=== PATIENT | female | born 1985 | race Caucasian/White ===

== ENCOUNTER 2016-08-14 11:45 | Inpatient (IN) | payer OTHER ==
[~2016-08-14] VITALS: Ht 162.6 cm; Wt 71.9 kg
[~2016-08-14 11:45] MED LIST: BENZTROPINE MESY1 M1 PO; CHLORPROMAZINE25 M2 PO; DIAZEPAM2 M1 PO; HYDROCHLOROTH12.5 M3 PO; LEVOTHYROXINE200 MC1 PO; METFORMIN HCL500 M4 PO; PROAIR HFA8.5 GM INH; SYMBICORT 16010.2 GM INH
--- NOTE | 2016-08-14 11:52 | ED PSYCHIATRIC COMPLAINT ---
History of Present Illness General Chief Complaint: Psychiatric Related Complaint Stated Complaint: SI Source: patient Exam Limitations: no limitations Vital Signs & Intake/Output Vital Signs & Intake/Output Vital Signs Date Time Temp Pulse Resp B/P B/P Pulse O2 O2 Flow FiO2 Mean Ox Delivery Rate 08/14 1900 98.3 78 18 131/87 97 Room Air 08/14 1728 97.3 84 18 126/72 97 Room Air 08/14 1410 97.7 89 18 119/77 99 Room Air 08/14 1257 Room Air 08/14 1206 96.9 82 14 119/80 96 Room Air Allergies Coded Allergies: NO KNOWN ALLERGIES (09/29/15) Reconcile Medications Albuterol Sulfate (Proair Hfa) 8.5 GM HFA.AER.AD 2 PUF INH PRN ASTHMA ( Reported) Benztropine Mesylate 1 MG TABLET 1 TAB PO TID MENTAL HEALTH (Reported) Budesonide/Formoterol Fumarate (Symbicort 160-4.5 Mcg Inhaler) 10.2 GM HFA.AER.AD 2 PUF INH BID ASTHMA (Reported) Chlorpromazine HCl 25 MG TABLET 1 TAB PO 4 TIMES/DAY MENTAL HEALTH (Reported) Diazepam 2 MG TABLET 1 TAB PO BID ANXIETY (Reported) Hydrochlorothiazide 12.5 MG CAPSULE 1 CAP PO DAILY DIURETIC (Reported) Levothyroxine Sodium 200 MCG TABLET 1 TAB PO DAILY THYROID (Reported) Metformin HCl (Metformin HCl ER) 500 MG TAB.ER.24H 1 TAB PO BID DIABETES ( Reported) Triage Nurses Notes Reviewed? yes HPI: This is a 31-year-old female with history of bipolar disorder, hypothyroidism presents to the ER via EMS from her friend's house for feeling suicidal. She states that her boyfriend of 10 years broke up with her 2 weeks ago. The reason this occurred is because she spent the remainder of the money of her son's birthday gift on cocaine. She's never used cocaine. She's been using cocaine in the last 2 weeks last used days ago. Denies any recent IV drug use but has a history in the past of IV drug use. She states she is a plan to cut her wrists. She is feeling very sad. She been noncompliant with all of her medications for the past 2 weeks which include Thorazine and Synthroid. She denies hearing any voices. Denies feeling homicidal towards anyone else. 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 History of MRSA: No History of VRE: No History of CDIFF: No Pneumonia Vaccine: 10/01/15 Influenza Vaccine: 12/21/09 Surgical History Surgical History: non-contributory Psychosocial History Who do you live with Significant Other Services at Home None What is your primary language German Progress Differential Diagnosis: BIPOLAR DISORDER, DEPRESSION, ANXIEYT, SUICIDAL IDEATION , COCAINE ABUSE Plan of Care: Orders Procedure Date/time Status Regular Diet 08/15 B Active EKG 08/15 1200 Active THYROID STIMULATING HORMONE 08/15 0600 Active THYROXINE 08/15 0600 Active LIPID PANEL 08/15 0600 Active GLYCOSYLATED HGB 08/15 0600 Active FREE T4 08/15 0600 Active Regular Diet 08/14 D Complete Patient Data - inpatient psych 08/14 1758 Active Admit to inpatient psych 08/14 1758 Active Pathway - chart 08/14 1758 Active Add-on Test (ER Only) 08/14 1423 Active Intake & Output 08/14 1255 Active ETHANOL 08/14 1240 Complete Continuous Observation Monitor 08/14 1152 Active URINE DRUGS OF ABUSE 08/14 1152 Complete URINE 08/14 1152 Complete COMPREHENSIVE METABOLIC PANEL 08/14 1152 Complete CBC WITHOUT DIFFERENTIAL 08/14 1152 Complete ED CRISIS PSYCH CONSULT 08/14 1152 Active Vital Signs 08/14 UNK Active CIWA 08/14 UNK Active Activity/Ambulation 08/14 UNK Active Current Medications Sig/Yolanda Start time Last Medication Dose Stop Time Status Admin Lorazepam 2 MG Q2P PRN 08/14 1800 AC (Ativan) Lorazepam 1 MG Q2P PRN 08/14 1800 AC (Ativan) Laboratory Tests 08/14/16 1242: Urine Opiates Screen > 4000.00 H, Methadone Screen < 40, Barbiturate Screen < 60, Ur Phencyclidine Scrn < 6.00, Amphetamines Screen < 100, U Benzodiazepines Scrn < 85, Urine Cocaine Screen < 50, Urine Cannabis Screen < 5.00, Urine Test NEGATIVE 08/14/16 1240: Anion Gap 15, Estimated GFR > 60, BUN/Creatinine Ratio 13.8, Glucose 199 H, Calcium 10.1, Total Bilirubin 1.4 H, AST 42 H, ALT 80 H, Alkaline Phosphatase 70, Total Protein 8.2, Albumin 5.1 H, Globulin 3.1, Albumin/Globulin Ratio 1.6, CBC w Diff NO MAN DIFF REQ, RBC 5.78 H, MCV 82.4, MCH 27.7, RDW 12.8, MPV 9.0, Gran % 75.7 H, Lymphocytes % 19.8 L, Monocytes % 4.0, Eosinophils % 0.2, Basophils % 0.3, Absolute Granulocytes 5.6, Absolute Lymphocytes 1.5, Absolute Monocytes 0.3, Absolute Eosinophils 0, Absolute Basophils 0, PUBS MCHC 33.7, Serum Alcohol < 10.0 Departure Departure Time of Disposition: 1913 Disposition: STILL A PATIENT Condition: Stable Clinical Impression Primary Impression: Bipolar disorder, unspecified Secondary Impressions: Opiate abuse, continuous, Suicidal ideation Referrals: JEREMIAS RICHARDSON APRN (PCP/Family) Departure Forms: Customer Survey General Discharge Information Psych Admission Note Psychiatric Admission: I have seen and evaluated KYRA ARELLANO. I have also reviewed all the pertinent lab results and diagnostic results. KYRA ARELLANO will be admitted to our inpatient Psychiatric unit for treatment and care.
--- NOTE | 2016-08-14 11:58 | ED PSY CRISIS COLLATERAL NOTE ---
Collateral Note Collateral Note Family/Inform/Rosalie Contacts: Lety of [facility] called to inform that they sent pt in from her emergency [employer] MECHANIC visit today at [facility]. Pt has been off her meds for several weeks and increasingly depressed. She relapsed on cocaine. She has a hx of suicide attempts and cutting her wrists. Her last inpt pt psych tx was about 1 year ago. Pt recently broke up with her boyfriend and is currently having suicidal thoughts and feels unsafe. [facility] faxed over some records for review.
--- NOTE | 2016-08-14 12:04 | NUR ---
PT DALE FROM CARE IN [place] FOR STATEMENTS OF SI. PER PATIENT, SHE STOPPED TAKING HER MEDICATIONS FOLLOWING A BREAK-UP WITH LONG-TIME BOYFRIEND TWO WEEKS AGO. SINCE THAT TIME, SHE HAS BEEN MOVING FROM PLACE TO PLACE WITH NO PERMANENT RESIDENCE. ADMITS TO USING COCAINE YESTERDAY AND PREVIOUSLY. DENIES OTHER ILLICIT DRUG USE. PT TEARFUL AT ADMIT, STATING SHE HAS NO CONCRETE PLAN FOR SUICIDE, BUT HAS THE MEANS. PT WANDED AND CHANGED INTO BLUE SCRUBS, BELONGINGS DOCUMENTED, PT IN VIEW OF OBSERVATION STAFF
--- NOTE | 2016-08-14 12:19 | NUR ---
Patient has (2) two belongings bags locked in closet, (1) one valuables bag given to Pod 2 RN and (1) one valuables bag containing pepper spray taken by Security and locked in their department.
[2016-08-14 12:57] LABS: ABSOLUTE BASOPHIL COUNT 0 /CUMM (0.0-0.2); ABSOLUTE EOSINOPHIL COUNT 0 /CUMM (0.0-0.7); ABSOLUTE GRANULOCYTE CT 5.6 /CUMM (1.4-6.5); ABSOLUTE LYMPH COUNT 1.5 /CUMM (1.2-3.4); ABSOLUTE MONOCYTE COUNT 0.3 /CUMM (0.10-0.60); BASOPHIL % 0.3 % (0.0-2.0); EOSINOPHIL % 0.2 % (0-5); GRANULOCYTE % 75.7 % (42.2-75.2); HEMATOCRIT 47.6 % (37-47); MEAN CORPUSCULAR HGB 27.7 PG (27.0-31.0); MEAN CORPUSCULAR HGB CONC 33.7 G/DL (33.0-37.0); MEAN CORPUSCULAR VOLUME 82.4 FL (81.0-99.0); PLATELET COUNT 188 /CUMM (130-400); RBC DISTRIBUTION WIDTH 12.8 % (11.5-14.5); RED BLOOD CELL CT 5.78 /CUMM (4.20-5.40); WHITE BLOOD CELL COUNT 7.5 /CUMM (4.8-10.8)
--- NOTE | 2016-08-14 14:54 | NUR ---
PT WITH CRISIS
--- NOTE | 2016-08-14 17:50 | NUR ---
Crisis evaluation completed. pt will admitted to [facility].
--- NOTE | 2016-08-14 18:04 | NUR ---
REPORT TO NNP IN [facility]
[2016-08-14 20:00] VITALS: BP 119/74
--- NOTE | 2016-08-14 20:02 | ED PSYCH CRISIS CONSULTATION ---
Crisis Consult Basic Assessment Date of Consult: 08/14/16 Responsible Person/Accompanied By: Self Insurance Authorization: Insurance #1: Insurance name: [employer] Phone number: Policy number: [id number] Group number: Authorization number: ED Provider: Patient's ED Provider: JASON HENAO MD Primary Care Physician: Patient's PCP: JEREMIAS RICHARDSON APRN PCP's Current Psychiatrist: Guevara Mitchell MD Chief Complaint: Psychiatric Related Complaint Patient's Quote: "I'm feeling down" Present Illness: Pt is a 31 year old single female BIBA from [facility]. Pt was seen at [facility] by Cheryle Hart APRN whom the pt told she was having suicidal thoughts. Pt reports she has been binging on Cocaine for the past two weeks and now she feels like "hurting myself in anyway". Pt states she hasn't had much sleep or food within the past two weeks. Current stressors, pt recently was thrown out of her boyfriend's home (in a relationship 10 years). Pt states she took money from her boyfriend and bought "things for my son's birthday" and also use the money from her boyfriend for drugs. The boyfriend found out and threw her out of his home. Pt is unemployed and now homeless. Pt states her mother too is homeless and lives out of her car. Pt has a 13 year old son Noel, who lives with his father in [place]. Pt was alert and oriented. Pt states she was unaware that she was snorting Heroin, pt believed she was snorting Cocaine instead. However her Utox is positive for Opioid, not Cociane. Pt's mood was depressed, her attitude was calm and cooperative. Pt appeared motivated for help as she stated she went to her outpatient treatment today, even though her appointment was not until 08/25/16. Pt denies having homicidal thoughts and no reports of hallucinations. Pt has a history of a mental health diagnosis of Bipolar Disorder since "I was teenager". Pt has had multiple inpatient admissions. Pt was admitted to [facility] in 2009, 2010 and 2015. Pt was also admitted to [facility] ([facility]). In September, pt was discharged from [facility] with a diagnosis of Bipolar Disorder I, depressed episode. Also, pt reports a history polysubstance use that began at age 16. Pt states she has participated and completed IOP treatment at both [facility] and [facility] IOP. Pt's Utox positive for Opioids. Pt states she stopped taking her psychotropic medication for approximately 2 weeks since the increase in her cocaine & opioid use. Patient's Address: [address] [place] [address] Other Phone Number: Who Do You Live With? Other (see notes) (Homeless) Family/Informants Interviewed: Please see collateral notes. Allergies - Coded Allergies: NO KNOWN ALLERGIES (09/29/15) Current Medications - Scheduled Medications Benztropine Mesylate 1 MG TABLET 1 TAB PO TID MENTAL HEALTH #90 (Reported) Entered as Reported by RENETTA LANDAVERDE on 09/29/151928 Budesonide/Formoterol Fumarate (Symbicort 160-4.5 Mcg Inhaler) 10.2 GM HFA.AER.AD 2 PUF INH BID ASTHMA #10 (Reported) Entered as Reported by RENETTA LANDAVERDE on 09/29/151929 Chlorpromazine HCl 25 MG TABLET 1 TAB PO 4 TIMES/DAY MENTAL HEALTH #120 ( Reported) Entered as Reported by RENETTA LANDAVERDE on 09/29/151927 Diazepam 2 MG TABLET 1 TAB PO BID ANXIETY #60 (Reported) Entered as Reported by RENETTA LANDAVERDE on 09/29/151928 Hydrochlorothiazide 12.5 MG CAPSULE 1 CAP PO DAILY DIURETIC #30 (Reported) Entered as Reported by RENETTA LANDAVERDE on 09/29/151927 Levothyroxine Sodium 200 MCG TABLET 1 TAB PO DAILY THYROID #30 (Reported) Entered as Reported by RENETTA LANDAVERDE on 09/29/151927 Metformin HCl (Metformin HCl ER) 500 MG TAB.ER.24H 1 TAB PO BID DIABETES #30 (Reported) Entered as Reported by RENETTA LANDAVERDE on 09/29/151928 Scheduled PRN Medications Albuterol Sulfate (Proair Hfa) 8.5 GM HFA.AER.AD 2 PUF INH PRN ASTHMA #9 ( Reported) Entered as Reported by RENETTA LANDAVERDE on 09/29/151928 Laboratory Results: Laboratory Tests 08/14/16 1242: Urine Opiates Screen > 4000.00 H, Methadone Screen < 40, Barbiturate Screen < 60, Ur Phencyclidine Scrn < 6.00, Amphetamines Screen < 100, U Benzodiazepines Scrn < 85, Urine Cocaine Screen < 50, Urine Cannabis Screen < 5.00, Urine Test NEGATIVE 08/14/16 1240: Anion Gap 15, Estimated GFR > 60, BUN/Creatinine Ratio 13.8, Glucose 199 H, Calcium 10.1, Total Bilirubin 1.4 H, AST 42 H, ALT 80 H, Alkaline Phosphatase 70, Total Protein 8.2, Albumin 5.1 H, Globulin 3.1, Albumin/Globulin Ratio 1.6, CBC w Diff NO MAN DIFF REQ, RBC 5.78 H, MCV 82.4, MCH 27.7, RDW 12.8, MPV 9.0, Gran % 75.7 H, Lymphocytes % 19.8 L, Monocytes % 4.0, Eosinophils % 0.2, Basophils % 0.3, Absolute Granulocytes 5.6, Absolute Lymphocytes 1.5, Absolute Monocytes 0.3, Absolute Eosinophils 0, Absolute Basophils 0, PUBS MCHC 33.7, Serum Alcohol < 10.0 Past History Past Medical History Neurological: NONE EENT: NONE Cardiovascular: EDEMA Respiratory: NONE Gastrointestinal: NONE Hepatic: cholecystitis, ENLARGED LIVER Renal: NONE Musculoskeletal: NONE Psychiatric: depression, substance abuse Endocrine: hypothyroidism Blood Disorders: NONE Cancer(s): NONE 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 Past Surgical History Surgical History: non-contributory Psychosocial History Strengths/Capabilities: Pt participated in treatment at [facility], Pt is motivated for help Physical Limitations (Interventions): None known Psychiatric Treatment History Psych Treatment Psychiatric Treatment Yes Inpatient Treatment Yes Outpatient Treatment Yes Location of Treatment [facility] and [facility] Reason for Treatment Bipolar Disorder Depression Dates of Treatment 2009, 2010, 2015 Diagnosis by History: Bipolar D/O, Cocaine use disorder, opioid use disorder Substance Use/Abuse History Drug Use/Abuse Substances Used/Abused Yes Substance Used/Abused Heroin First Use Age 16 Last Used 08/14/16 How much used/taken unknown How often Daily For how long Two Weeks Route of use snort Substance Abuse Treatment Substance Abuse Treatment Past Substance Abuse TX Yes Inpatient Treatment No Outpatient Treatment Yes Location of Treatment [facility], [facility] IOP Reason for Treatment Polysubstance use Cocaine, Heroin Ecstasy Dates of Treatment 2010, 2013 Response to Treatment Relapse, Current Mental Status Mental Status Orientation: Person, Place, Situation Affect: Anxious, Depressed, Lonely, Sad Speech: Normal Neuro-vegetative: Appetite Decreased, Energy Decreased, Helpless, Loss of Interest, Sleep Disturbance Appearance Appearance- Dress/Hygiene: Disheveled, unkempt Behaviors Thought Process: Disorganized Thought Content: hopeless/helpless Memory: WNL Insight: Poor SI/HI Risk Assessment Past Suicidal Ideation/Attempts Yes Current Suicidal Ideation/Att Yes Past Homicidal Ideation/Att: No Current Homicidal Ideation/Attempts No Degree of Intent: Plan, Self Destructive/No , States Intent Danger To: Self Gravely Disabled: Lack of Insight, Poor Impulse Control, Poor Judgment Risk Factors: high anxiety/distress, history of suicide atmpts, SA/MH hospitalized, substance abuse, poor impulse control, limited support Lethality Ratin PTSD Checklist PTSD Done? pt unable to participate ED Management Sitter: Yes Restraints: No DSM5/PS Stressors/Medical Prob Diagnosis' (DSM 5, Stressors, Medical): F31.9 Bipolar Disorder Unspecified, F11.20 Opioid Use Disorder Severe, F14.20 Cocaine Use Disorder Severe Medical Condition, hypothyroidism, hypertension Z59.1 inadequate housing, Z55.9 Educational problems, Z56.9 other problems related to employment Current GAF: 20 Departure Disposition Psych Medical Clearance Date: 08/14/16 Medically Cleared at: 0400 Time Started: 0510 Time Ended: 544 Psychiatrist Consulted: Guevara Mitchell MD Date Disposition Established: 08/14/16 Time Disposition Established: 544 Plan for Disposition - Modality: Inpatient Psychiatry Facility: [facility] Follow-up Appt Date: 08/14/16 Follow-Up Appt Time: 0600 Contact: [facility] Telephone: [phone] Rationale for Disposition: Pt presented to the ED with positive suicidal ideation and plan to overdose and harm herself in anyway. Pt utox was positive for opioid and she reports she has been snorting substances not eating or sleeping two weeks. Pt also discontinued her psychotropic medications. Pt meets criteria for inpatient admission because she is at risk and a danger to herself due to ongoing substance abuse. Type of IP Admission: Voluntary Referrals JEREMIAS RICHARDSON APRN (PCP/Family)
[2016-08-14 20:05] VITALS: BP 119/74
--- NOTE | 2016-08-14 21:16 | IP CRISIS DIAG ASSESS PSYCH ---
Diagnostic Assessment Basic Assessment Insurance Authorization: Insurance #1: Insurance name: [facility] Phone number: Policy number: [id number] Group number: Authorization number: [id number] Client Authorization # [id number] Primary Care Physician: Patient's PCP: JEREMIAS RICHARDSON APRN PCP's Patient's Quote: "I'm feeling down" Present Illness: Pt is a 31 year old single female BIBA from [facility]. Pt was seen at [facility] by Cheryle Hart APRN whom the pt told she was having suicidal thoughts. Pt reports she has been binging on Cocaine for the past two weeks and now she feels like "hurting myself in anyway". Pt states she hasn't had much sleep or food within the past two weeks. Current stressors, pt recently was thrown out of her boyfriend's home (in a relationship 10 years). Pt states she took money from her boyfriend and bought "things for my son's birthday" and also use the money from her boyfriend for drugs. The boyfriend found out and threw her out of his home. Pt is unemployed and now homeless. Pt states her mother too is homeless and lives out of her car. Pt has a 13 year old son Noel, who lives with his father in [place]. Pt was alert and oriented. Pt states she was unaware that she was snorting Heroin, pt believed she was snorting Cocaine instead. However her Utox is positive for Opioid, not Cociane. Pt's mood was depressed, her attitude was calm and cooperative. Pt appeared motivated for help as she stated she went to her outpatient treatment today, even though her appointment was not until 08/25/16. Pt denies having homicidal thoughts and no reports of hallucinations. Pt has a history of a mental health diagnosis of Bipolar Disorder since "I was teenager". Pt has had multiple inpatient admissions. Pt was admitted to [facility] in 2009, 2010 and 2015. Pt was also admitted to [facility] ([facility] In September, pt was discharged from [facility] with a diagnosis of Bipolar Disorder I, depressed episode. Also, pt reports a history polysubstance use that began at age 16. Pt states she has participated and completed IOP treatment at both [facility] and [facility]. Pt's Utox positive for Opioids. Pt states she stopped taking her psychotropic medication for approximately 2 weeks since the increase in her cocaine & opioid use. Patient's Address: [address] [place] [address] Other Phone Number: Who Do You Live With? Other (see notes) (Homeless) Feel Safe Where You Live? No Feel Safe in Your Relationship No If No, Please Elaborate: Pt's boyfriend is stating pt can no longer live with him in his home. Marital Status: single Do You Have Children? Yes Ages? 13 year old boy Primary Language? Dutch Language(s) Spoken At Home: Dutch Family/Informants Interviewed: Please see collateral notes. Allergies - Coded Allergies: NO KNOWN ALLERGIES (09/29/15) Current Medications - Scheduled Medications Benztropine Mesylate 1 MG TABLET 1 TAB PO TID MENTAL HEALTH #90 (Reported) Entered as Reported by RENETTA LANDAVERDE on 09/29/151928 Budesonide/Formoterol Fumarate (Symbicort 160-4.5 Mcg Inhaler) 10.2 GM HFA.AER.AD 2 PUF INH BID ASTHMA #10 (Reported) Entered as Reported by RENETTA LANDAVERDE on 09/29/151929 Chlorpromazine HCl 25 MG TABLET 1 TAB PO 4 TIMES/DAY MENTAL HEALTH #120 ( Reported) Entered as Reported by RENETTA LANDAVERDE on 09/29/151927 Diazepam 2 MG TABLET 1 TAB PO BID ANXIETY #60 (Reported) Entered as Reported by RENETTA LANDAVERDE on 09/29/151928 Hydrochlorothiazide 12.5 MG CAPSULE 1 CAP PO DAILY DIURETIC #30 (Reported) Entered as Reported by RENETTA LANDAVERDE on 09/29/151927 Levothyroxine Sodium 200 MCG TABLET 1 TAB PO DAILY THYROID #30 (Reported) Entered as Reported by RENETTA LANDAVERDE on 09/29/151927 Metformin HCl (Metformin HCl ER) 500 MG TAB.ER.24H 1 TAB PO BID DIABETES #30 (Reported) Entered as Reported by RENETTA LANDAVERDE on 09/29/151928 Scheduled PRN Medications Albuterol Sulfate (Proair Hfa) 8.5 GM HFA.AER.AD 2 PUF INH PRN ASTHMA #9 ( Reported) Entered as Reported by RENETTA LANDAVERDE on 09/29/15 1929 Consequences of Psych Med Use: prevent relapse on substances reduce symptoms of depression Lab Results: Laboratory Tests 08/14/16 1242: Urine Opiates Screen > 4000.00 H, Methadone Screen < 40, Barbiturate Screen < 60, Ur Phencyclidine Scrn < 6.00, Amphetamines Screen < 100, U Benzodiazepines Scrn < 85, Urine Cocaine Screen < 50, Urine Cannabis Screen < 5.00, Urine Test NEGATIVE 08/14/16 1240: Anion Gap 15, Estimated GFR > 60, BUN/Creatinine Ratio 13.8, Glucose 199 H, Calcium 10.1, Total Bilirubin 1.4 H, AST 42 H, ALT 80 H, Alkaline Phosphatase 70, Total Protein 8.2, Albumin 5.1 H, Globulin 3.1, Albumin/Globulin Ratio 1.6, CBC w Diff NO MAN DIFF REQ, RBC 5.78 H, MCV 82.4, MCH 27.7, RDW 12.8, MPV 9.0, Gran % 75.7 H, Lymphocytes % 19.8 L, Monocytes % 4.0, Eosinophils % 0.2, Basophils % 0.3, Absolute Granulocytes 5.6, Absolute Lymphocytes 1.5, Absolute Monocytes 0.3, Absolute Eosinophils 0, Absolute Basophils 0, PUBS MCHC 33.7, Serum Alcohol < 10.0 Toxicology Screen Completed? Yes Results: positive Symptoms of Use: Suicidal ideation Depressive state Past History Past Surgical History Surgical History cholecystectomy, Tubal ligation Abuse/Trauma History Trauma History/Current Trauma: Denies Legal History Current Legal Status: none Have you ever been arrested? 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 Psychosocial History Strengths/Capabilities: Pt participated in treatment at [facility], Pt is motivated for help Physical Limitations (Interventions): None known Psychiatric Treatment History Psych Treatment Psychiatric Treatment Yes Inpatient Treatment Yes Outpatient Treatment Yes Location of Treatment [facility] and [facility] Reason for Treatment Bipolar Disorder Depression Dates of Treatment 2009, 2010, 2015 Response to Treatment "On and Off" participation in treatment Diagnosis by History: Bipolar D/O, Cocaine use disorder, opioid use disorder Risk Factors: high anxiety/distress, history of suicide atmpts, SA/MH hospitalized, substance abuse, poor impulse control, limited support Substance Use/Abuse History Drug Use/Abuse minimum 12mo Hx Substances Used/Abused Yes Substance Used/Abused Heroin First Use Age 16 Last Used 08/14/16 How much used/taken unknown How often Daily For how long Two Weeks Route of use snort Substance Abuse Treatment Substance Abuse Treatment Past Substance Abuse TX Yes Inpatient Treatment No Outpatient Treatment Yes Location of Treatment [facility], [facility] Reason for Treatment Polysubstance use Cocaine, Heroin Ecstasy Dates of Treatment 2010, 2013 Response to Treatment Relapse, Sexual History Sexually Active Yes # of partners 1 Sexual Orientation Heterosexual Use of Protection No Sexual Concerns: None reported Education History Highest Level of Education: did not complete HS Preferred Learning Style: experiential Current Mental Status Mental Status Orientation: Person, Place, Situation Affect: Anxious, Depressed, Lonely, Sad Speech: Normal Neuro-vegetative: Appetite Decreased, Energy Decreased, Helpless, Loss of Interest, Sleep Disturbance Appearance Appearance- Dress/Hygiene: Disheveled, unkempt Behaviors Thought Process: Disorganized Thought Content: hopeless/helpless Memory: WNL Insight: Poor SI/HI Risk Assessment - Minimum 6mo History- Past Suicidal Ideation/Attempts Yes Current Suicidal Ideation/Att Yes Past Homicidal Ideation/Att: No Current Homicidal Ideation/Attempts No Degree of Intent: Plan, Self Destructive/No , States Intent Danger To: Self Gravely Disabled: Lack of Insight, Poor Impulse Control, Poor Judgment Risk Factors: high anxiety/distress, history of suicide atmpts, SA/MH hospitalized, substance abuse, poor impulse control, limited support Lethality Ratin Needs/Init TX Plan/Goals: Monitor for safety Medication evaluation Diagnostic Assessment Psychiatric evaluation Individual, Group & Family therapy Discharge planning and case management AUDIT-C Questionnaire: AUDIT-C Questionnaire: Response Value ETOH use in the past year Never 0 # drinks typical/day Doesn't Drink 0 6 or > drinks per occasion Never 0 Total 0 DSM5/PS Stressors/Medical Prob Diagnosis' (DSM 5, Stressors, Medical): F31.9 Bipolar Disorder Unspecified, F11.20 Opioid Use Disorder Severe, F14.20 Cocaine Use Disorder Severe Medical Condition, hypothyroidism, hypertension Z59.1 inadequate housing, Z55.9 Educational problems, Z56.9 other problems related to employment Current GAF: 20
--- NOTE | 2016-08-14 21:24 | NUR ---
Pt is in the lounge upon arrival mood is stable affect is little constricted. Pt vital signs are stable c/o no pain, appetite is good will continue to monitor the pt overnight.
[2016-08-15] VITALS (9 sets, daily range): BP systolic 114–134; BP diastolic 64–75
--- NOTE | 2016-08-15 00:30 | History & Physical ---
General Information and HPI MD Statement: I have seen and personally examined KYRA ARELLANO and documented this H&P. The patient is a 31 year old F who presented with a patient stated chief complaint of [ medical evaluation ]. Source of Information: patient Exam Limitations: no limitations History of Present Illness: 31-year-old female with past medical history significant for DM, HTN, hypothyroidism, bipolar disorder, brought in ER via EMS from her friend's house for suicidal ideation and plan to cut her wrist. She broke up with her boyfriend 2 weeks back. She's been using cocaine in the last 2 weeks last used days ago. She Denies any recent IV drug use but has a history in the past of IV drug use. She been noncompliant with all of her medications for the past 2 weeks including Thorazine and Synthroid. She denied hallucinations or homicidal ideation. She complains of mild chest pain intermittently, nonradiating, non-shifting. And mild epigastric pain again nonradiating non-shifting. Has headache. Other than that she denies any cough, congestion, loss of consciousness, dizziness, urinary symptoms, nausea vomiting constipation diarrhea. Allergies/Medications Allergies: Coded Allergies: NO KNOWN ALLERGIES (09/29/15) Home Med list Albuterol Sulfate (Proair Hfa) 8.5 GM HFA.AER.AD 2 PUF INH PRN ASTHMA ( Reported) Benztropine Mesylate 1 MG TABLET 1 TAB PO TID MENTAL HEALTH (Reported) Budesonide/Formoterol Fumarate (Symbicort 160-4.5 Mcg Inhaler) 10.2 GM HFA.AER.AD 2 PUF INH BID ASTHMA (Reported) Hydrochlorothiazide 12.5 MG CAPSULE 1 CAP PO DAILY DIURETIC (Reported) Levothyroxine Sodium 200 MCG TABLET 1 TAB PO DAILY THYROID (Reported) Metformin HCl (Metformin HCl ER) 500 MG TAB.ER.24H 1 TAB PO BID DIABETES ( Reported) Compliance With Home Meds: FAIR Past History Travel History Traveled to [place] past 21 day No Medical History Neurological: NONE EENT: NONE Cardiovascular: EDEMA Respiratory: NONE Gastrointestinal: NONE Hepatic: cholecystitis, ENLARGED LIVER Renal: NONE Musculoskeletal: NONE Psychiatric: depression, substance abuse Endocrine: diabetes, hypothyroidism Blood Disorders: NONE Cancer(s): NONE 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 Ambulation: independent IADLs Independent: shopping, housework, finances, food prep, telephone, transportation , medication admin. Sexual History Sexually Active Yes # of partners 1 Sexual Orientation Heterosexual Review of Systems Review of Systems Constitutional: Reports: no symptoms. EENTM: Reports: no symptoms. Cardiovascular: Reports: chest pain. Denies: edema, orthopena, palpitations, peripheral edema, syncope. Respiratory: Denies: cough, hemoptysis, orthopnea, short of breath, sputum production, stridor, wheezing. GI: Reports: abdominal pain. Denies: bloating, constipation, diarrhea, distention, bowel incontinence, melena, nausea, bloody stool, changes in stool, vomiting, steatorrhea. Genitourinary: Reports: no symptoms. Musculoskeletal: Reports: no symptoms. Skin: Reports: no symptoms. Neurological/Psychological: Reports: no symptoms. Hematologic/Endocrine: Reports: no symptoms. Immunologic/Allergic: Reports: no symptoms. Exam & Diagnostic Data Last 24 Hrs of Vital Signs/I&O Vital Signs Date Time Temp Pulse Resp B/P B/P Pulse O2 O2 Flow FiO2 Mean Ox Delivery Rate 08/14 2004 98.9 80 119/74 08/15 1999 98.9 80 16 119/74 08/14 1900 98.3 78 18 131/87 97 Room Air 08/14 1728 97.3 84 18 126/72 97 Room Air 08/14 1410 97.7 89 18 119/77 99 Room Air 08/14 1257 Room Air 08/14 1206 96.9 82 14 119/80 96 Room Air Intake & Output 08/14 1600 06/03 0000 08/15 0800 Intake Total 240 Output Total Balance 240 Intake, Oral 240 Patient 72.575 kg 71.894 kg Weight Weight Reported by Patient Measurement Method Physical Exam General Appearance Alert, Oriented X3, Cooperative, No Acute Distress Skin No Rashes, No Breakdown, No Significant Lesion HEENT Atraumatic, PERRLA, EOMI Neck Supple, No JVD, No thryomegaly, +2 Carotid Pulse wo Bruit Lymphatic Cervical nl Cardiovascular Regular Rate, Normal S1, Normal S2, No Murmurs Lungs Clear to Auscultation, Normal Air Movement Abdomen Normal Bowel Sounds, Soft, No Tenderness, No Hepatospenomegaly, No Masses Neurological Exam Findings: Normal Gait, Normal Speech, Strength at 5/5 X4 Ext, Normal Tone, Sensation Intact, Cranial Nerves 3-12 NL, Reflexes 2+ Cranial Nerves II through XII: 3-12 intact Extremities No Clubbing, No Cyanosis, No Edema, Normal Pulses, No Tenderness/ Swelling Vascular Normal Pulses, Pulses Symmetrical Last 24 Hrs of Labs/Jewel: Laboratory Tests 08/14/16 1242: Urine Opiates Screen > 4000.00 H, Methadone Screen < 40, Barbiturate Screen < 60, Ur Phencyclidine Scrn < 6.00, Amphetamines Screen < 100, U Benzodiazepines Scrn < 85, Urine Cocaine Screen < 50, Urine Cannabis Screen < 5.00, Urine Test NEGATIVE 08/14/16 1240: Anion Gap 15, Estimated GFR > 60, BUN/Creatinine Ratio 13.8, Glucose 199 H, Calcium 10.1, Total Bilirubin 1.4 H, AST 42 H, ALT 80 H, Alkaline Phosphatase 70, Total Protein 8.2, Albumin 5.1 H, Globulin 3.1, Albumin/Globulin Ratio 1.6, CBC w Diff NO MAN DIFF REQ, RBC 5.78 H, MCV 82.4, MCH 27.7, RDW 12.8, MPV 9.0, Gran % 75.7 H, Lymphocytes % 19.8 L, Monocytes % 4.0, Eosinophils % 0.2, Basophils % 0.3, Absolute Granulocytes 5.6, Absolute Lymphocytes 1.5, Absolute Monocytes 0.3, Absolute Eosinophils 0, Absolute Basophils 0, PUBS MCHC 33.7, Serum Alcohol < 10.0 Assessment/Plan Assessment: #Suicidal ideation: Agree with psychiatrist plan # Mild transaminitis : Repeat LFT in 2 days # History of HTN: Continue home doses of hydrochlorothiazide at 12.5 mg by mouth daily # History of DM: Continue metformin 500 mg extended-release daily # History of hypothyroidism: Continue levothyroxine 200 g daily, await TSH level # If persistent chest pain then obtain EKG # Consider Protonix for epigastric pain As Ranked By This Provider Problem List: 1. Suicidal ideation 2. Bipolar 1 disorder 3. HTN (hypertension) 4. Diabetes 5. Hypothyroidism Miscellaneous Miscellaneous Documentation Attending Case Discussed With: AUDRA KLINE MD Primary Care Physician: JEREMIAS RICHARDSON APRN Patient sees these Specialists PCP Level of Patient Care: TAMMIE Gallardo
--- NOTE | 2016-08-15 04:39 | Admission Certification ---
Admission Certification Certification Statement - As attending physician, I certify that at the time of - admission, based on clinical presentation, severity of - symptoms, need for further diagnostic testing and - therapeutic interventions, and risk of adverse outcomes - without in-hospital treatment, in my clinical assessment, - this patient requires an acute hospital stay for a minimum - of two nights or longer. I have also considered psychsocial - factors such as support system, advanced age, financial - issues, cognitive issues, and failed out-patient treatments, - past re-admission history, safety of patient, and lack of - compliance as applicable. Specific rationale supporting this admission is: Suicidal ideation
--- NOTE | 2016-08-15 05:33 | NUR ---
PT APPEARED TO SLEEP WELL.
--- NOTE | 2016-08-15 13:11 | NUR ---
PT IS COMPLIANT AND COOPERATIVE. MOOD IS STABLE WITH A CONSTRITED AFFECT. PT DENIES SI AT THIS TIME, C/O GENERAL PAIN, NAUSEA. PT REPORTED FEELING S/S OF HEROIN WITHDRAWAL. PT IS PRESENT IN THE COMMUNITY AND INTERACTING WITH PEERS AND STAFF. PT IS ATTENDING GROUPS. VITALS ARE STABLE, APPETITE IS POOR.
--- NOTE | 2016-08-15 14:00 | CPS MD/APRN INITIAL ASSE PSYCH ---
See Addendum Psychiatric Admission Marine Scientist's Note Reviewed: Yes Patient Seen and Examined: Yes Identifying Information: 31yoF with hx of BPD Chief Complaint: "things are terrible" Reaction to Hospitalization: too early to assess History of Present Illness Onset of Illness: 17yo Circumstances Leading to Admission: worsening substance use Problem(s) Justifying Need for Admission: +SI and depression Other HPI: Pt notes that last two weeks have been very difficult as kicked out of family home by after spent money for her sons birthday on drugs. BF decided to end the relationship and now in unstable housing with friends. Pt notes that went to see MH at [facility] w/o appointment given SI and depression. She was referred to ER. Over the past two weeks stopped taking thorazine. She relapsed on cocaine (actually using heroin but thought was cocaine). As to psychiatric sx, pt notes DFA, DSS, poor energy, motivation, and SI. She notes +AHs of "ringing in ear." Denies more formed psychotic sx. States on thorazine for bipolar and mood stablization and feels is helpful for her. Notes some paranoia for which thorazine is also given. Denies michael or TRS. ?waylon michael at 17yo but unclear Past Psychiatric History Past Diagnosis(es)- if any: Bipolar disorder Polysustance use disorder Past Precipitating Factors- if any: substance use medication non-compliance loss of housing - Include inpatient and outpatient treatment Treatment History: Tx with Fanny (?TITLE 1 TUTOR) at [facility] in [place] History of Suicide Attempts or Gestures mulitple attempts most recnet 09/2015 via slit wrist, at [facility] prev OD Substance Abuse History: Tobacco: denied Alcohol: denied Illicits: +cocaine, heroin, mj Allergies: Coded Allergies: NO KNOWN ALLERGIES (09/29/15) Home Med List: Thorazine 75mg qhs Cogentin Valium - Include any medical condition(s) that may - impact the patient's recovery/remission Past Medical History: see H&P Past History Medical History Neurological: NONE EENT: NONE Cardiovascular: EDEMA Respiratory: NONE Gastrointestinal: NONE Hepatic: cholecystitis, ENLARGED LIVER Renal: NONE Musculoskeletal: NONE Psychiatric: depression, substance abuse Endocrine: diabetes, hypothyroidism Blood Disorders: NONE Cancer(s): NONE 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 History of MRSA: No History of VRE: No History of CDIFF: No Surgical History Surgical History: cholecystectomy, Tubal ligation Psychiatric Family/Social Hx Family History Psychiatric Illness: Denied Substance Use: Mult with drugs and alcohol Suicides: denied Social History Living Situation: currently homeless Significant Relationships (family/friends): none, estranged from son who lives with father in [place], broke up with her two weeks ago Education: 11th grade Vocation/Occupation: unemployed, prev worked at [employer], supported by Legal: denied Healthly Behaviors Screening Tobacco Screening Tobacco Use from ED Docu: Never used Daily Tobacco Use Amount/Type: =< 4 Cigarettes daily - If tobacco counseling indicated - the following topics are required. - #1 Recognizing dangerous situations. - #2 Coping Skills. - #3 Basic information about quitting. Status of Tobacco Cessation Counseling: Not Applicable Cessation Med Status Not Applicable Alcohol Screening - ETOH screen POS if BAL >=80 or Audit-C>= M4/F3 Audit-C Score from Diag Assess: 0 Blood Alcohol Level: Laboratory Tests 08/14 1240 Toxicology Serum Alcohol (<10 MG/DL) < 10.0 Alcohol Use Screening Results: Neg per Audit C &/or BAL - If ETOH counseling indicated - the following topics are required. - #1 Express concern about the patient's - drinking at unhealthy levels, include informing - of national norms for moderate drinking: - men <= 14 drinks/week, max 4 drinks/occasion - women <= 7 drinks/week, max 3 drinks/occasion - #2 Providing feedback, including linking alcohol to - negative physical effects (liver injury, hypertension) - negative emotional effects (relationship problems and - depression) - negative occupational consequences (reduced work - performance) - #3 Advising the patient to abstain from alcohol or - to drink below national norms for moderate drinking - (as listed above). Status of ETOH Use Counseling: N/A B/C NO ETOH Use Metabolic Screening - Screen if on a Neuroleptic Medication - Metabolic screening should include: - Blood Pressure, BMI, Glucose or Hgb A1c, & a - Lipid profile from within the past 365 days. Metabolic Screening () Not Applicable, patient not on a neuroleptic. OR () Patient on a neuroleptic(s) . Enter below results for Glucose or Hemoglobin A1C, and lipid panel if obtained during the last 365 days. BMI: 27.200 Blood Pressure: 114/74 Laboratory Results (If applicable): pending Exam and Plan Mental Status Examination Ambulation Status: walking freely Appearance: older than stated age Attitude towards examiner: cooperative Psychomotor activity: no retardation or agtiation Behavior: cooperative Quality of speech: nl r/r/v/p Affect: irritable Mood: "OK" Suicidal Ideation: + passive SI, none currently Homicidal Ideation: denied Hallucinations: noted rining at ears Paranoid/Delusional Material: + general nonspec Difficulties with thought organization: none noted Insight: limited Judgment: poor Orientation: a/o x4 Cognition: grossly intact Memory Function: grossly intact Estimate of intellectual functioning: average Assets/Strengths Patient Identified Assets/Strengths: able to communicate Impression/Plan Impression and Plan: A/P: Pt with hx of Bipolar disorder though unclear if manic or mixed episode at past currently on thorazine for mood stablization and tx of very vague ? psychotic sx. - Include all active medical diagnosis that require tx DSM 5 Diagnosis(es): Bipolar disorder by hx Polysubstance use disorder - Initial Tx Plan for Active Psych & Medical Conditions Treatment Plan: - Need collateral from Fanny re past tx and sx course - Restarted thorazine at behest of pt, unclear of indication but pt feels very helpful - Encourage groups - Need SW help as homeless - Factors that would help patient function - in a less restrictive setting. Factors: limited support
--- NOTE | 2016-08-15 18:03 | NUR ---
PT IS CALM, COOPERATIVE WITH STAFF AND PEERS, AND COMPLIANT WITH UNIT RULES. PT IS OFTEN IN [place], INTERACTING WELL WITH OTHERS. MOOD IS STABLE, AFFECT APPEARS EUTHYMIC TO FULL RANGE, COMMUNICATION IS ORGANIZED AND APPEARS NORMAL IN ALL RESPECTS, AND APPETITE IS NORMAL. PT DENIES SI AT THIS TIME.
[2016-08-16] VITALS (10 sets, daily range): BP systolic 97–139; BP diastolic 59–80
--- NOTE | 2016-08-16 06:00 | NUR ---
PATIENT SLEPT ALL NIGHT IN BETWEEN CIWA ASSESSMENTS; BLOOD PRESSURES STABLE, PULSE HOVERING BETWEEN 99 AND 100, OTHERWISE ASYMPTOMATIC; PATIENT SLEPT WELL, NO DETOX SYMPTOMS.
--- NOTE | 2016-08-16 10:40 | CP SOUTH PROGRESS NOTE PSYCH ---
Psych (Inpt) Progress Note Progress Note Include the following elements, when applicable: Involvement in the active treatment of the patient with behavioral observations of the patient and the patient's response to the treatment. Review of the ongoing treatment process in the context of the treatment plan. Indication of how multi-disciplinary staff members are carrying out the treatment plan. Plans for future interventions and recommendations for revision of the treatment plan. Liaison with other physicians/providers. Progress Note: Pt notes that in opiate wd. Clarified opiate use once again as inconsistent reporting. Pt denies SI or HI. Feels SI resolved since admission. Denies AVHs. Current Medications Sig/Yolanda Start time Last Medication Dose Route Stop Time Status Admin Albuterol Sulfate 2 PUF Q4P PRN 08/14 2230 AC INH Benztropine Mesylate 1 MG TID 08/15 1000 AC 08/16 PO 0940 Budesonide/ 2 PUF BID 08/15 1000 AC 08/16 Formoterol Fumarate INH 0940 Buprenorphine/ 2 TAB 0800 08/16 0945 AC 08/16 Naloxone SL 0942 Chlorpromazine 75 MG AT BEDTIME 08/15 2200 AC 08/15 PO 2128 Clonidine 0.1 MG Q6-PRN PRN 08/15 0830 AC PO Dicyclomine HCl 20 MG 4 TIMES/DAY PRN 08/15 0830 AC PO Hydrochlorothiazide 12.5 MG DAILY 08/15 1000 AC 08/16 PO 0940 Ibuprofen 600 MG Q6P PRN 08/15 0830 AC PO Levothyroxine Sodium 0.2 MG DAILY AC 08/15 0700 AC 08/16 PO 0648 Loperamide HCl 2 MG Q6P PRN 08/15 0830 AC PO Lorazepam 2 MG Q2P PRN 08/14 1800 AC PO Lorazepam 1 MG Q2P PRN / 1800 AC 08/15 PO 2318 Metformin HCl 500 MG 0800,1700 08/15 0800 AC 08/16 PO 0939 Ondansetron HCl 4 MG Q8P PRN 08/15 1215 AC PO Laboratory Tests 08/15 08/14 0603 1242 Chemistry Hemoglobin A1c (4.2 - 5.8 %) 8.5 H Triglycerides (<150 mg/dL) 104 Cholesterol (<200 MG/DL) 180 LDL Cholesterol, Calc (65 - 129 mg/dL) 108 HDL Cholesterol (40 - 60 mg/dL) 52 Cholesterol/HDL Ratio (0.00 - 4.23 %) 3 TSH (0.270 - 4.200 uIU/mL) 19.100 H Free T4 (0.79 - 2.35 ng/dL) 0.44 L Thyroxine (T4) (4.5 - 10.9 ug/dL) 3.6 L Toxicology Urine Opiates Screen (>2000 NG/ML) > 4000.00 H Methadone Screen (>300 NG/ML) < 40 Barbiturate Screen (>200 NG/ML) < 60 Ur Phencyclidine Scrn (>25 NG/ML) < 6.00 Amphetamines Screen (>1000 NG/ML) < 100 U Benzodiazepines Scrn (>200 NG/ML) < 85 Urine Cocaine Screen (>300 NG/ML) < 50 Urine Cannabis Screen (>50 NG/ML) < 5.00 Urines Urine Test NEGATIVE 08/14 1240 Chemistry Sodium (137 - 145 mmol/L) 139 Potassium (3.5 - 5.1 mmol/L) 4.5 Chloride (98 - 107 mmol/L) 99 Carbon Dioxide (22 - 30 mmol/L) 26 Anion Gap (5 - 16) 15 BUN (7 - 17 mg/dL) 11 Creatinine (0.5 - 1.0 mg/dL) 0.8 Estimated GFR (>60 ml/min) > 60 BUN/Creatinine Ratio (7 - 25 %) 13.8 Glucose (65 - 99 mg/dL) 199 H Calcium (8.4 - 10.2 mg/dL) 10.1 Total Bilirubin (0.2 - 1.3 mg/dL) 1.4 H AST (14 - 36 U/L) 42 H ALT (9 - 52 U/L) 80 H Alkaline Phosphatase (<127 U/L) 70 Total Protein (6.3 - 8.2 g/dL) 8.2 Albumin (3.5 - 5.0 g/dL) 5.1 H Globulin (1.9 - 4.2 gm/dL) 3.1 Albumin/Globulin Ratio (1.1 - 2.2 %) 1.6 Hematology CBC w Diff NO MAN DIFF REQ WBC (4.8 - 10.8 /CUMM) 7.5 RBC (4.20 - 5.40 /CUMM) 5.78 H Hgb (12.0 - 16.0 G/DL) 16.0 Hct (37 - 47 %) 47.6 H MCV (81.0 - 99.0 FL) 82.4 MCH (27.0 - 31.0 PG) 27.7 RDW (11.5 - 14.5 %) 12.8 Plt Count (130 - 400 /CUMM) 188 MPV (7.4 - 10.4 FL) 9.0 Gran % (42.2 - 75.2 %) 75.7 H Lymphocytes % (20.5 - 51.1 %) 19.8 L Monocytes % (1.7 - 9.3 %) 4.0 Eosinophils % (0 - 5 %) 0.2 Basophils % (0.0 - 2.0 %) 0.3 Absolute Granulocytes (1.4 - 6.5 /CUMM) 5.6 Absolute Lymphocytes (1.2 - 3.4 /CUMM) 1.5 Absolute Monocytes (0.10 - 0.60 /CUMM) 0.3 Absolute Eosinophils (0.0 - 0.7 /CUMM) 0 Absolute Basophils (0.0 - 0.2 /CUMM) 0 PUBS MCHC (33.0 - 37.0 G/DL) 33.7 Toxicology Serum Alcohol (<10 MG/DL) < 10.0 Vital Signs Date Time Temp Pulse Resp B/P B/P Pulse O2 O2 Flow FiO2 Mean Ox Delivery Rate 08/16 0838 98.8 99 105/64 06/04 0835 98.8 99 105/64 06/04 0653 100 06/04 0439 100 139/80 06/04 0159 99 16 139/75 06/03 2318 95 131/74 06/03 1946 98.9 88 123/75 06/03 1940 98.9 88 123/75 06/03 1617 81 120/69 06/03 1614 81 120/69 06/03 1223 87 114/74 06/03 1220 87 114/74 MSE Appears as stated age. Cooperative behavior, good, appropriate eye contact. Nl speech rate and prosody. No psychomotor retardation or agitation. Mood not too good Affect irritable, depressed, constricted, appropriate, non-liable. Linear and goal directed thought process. Denies SI or HI. Does not appear to be responding to internal stimuli. Denies AVHs, paranoia, or delusions. I/J: limited A/P: Pt with hx of Bipolar disorder though unclear if manic or mixed episode at past currently on thorazine for mood stablization and tx of very vague ? psychotic sx. - Need collateral from Fanny re past tx and sx course - Restarted thorazine at behest of pt, unclear of indication but pt feels very helpful - COWS and PRNS - Suboxone given for opiate wd, pt repeatedly stated last use was two weeks ago, now saying that she meant, "started two weeks ago, ended" [employer]. In opiate wd currently. - Encourage groups - Need SW help as homeless
--- NOTE | 2016-08-16 12:12 | NUR ---
Patient is A&O X 3, compliant with medication and group therapies. Patient is present in the community,interacts with other peers and staff members. Patient appear stable physically no s/s is acute distress or withdrawal from substance used. Patient report good night sleep and appetite, vital sign is stable and within the acceptable range, mood is stable with full range affect, denies thought of self-harm and to someone else.
--- NOTE | 2016-08-16 16:40 | SOCIAL WORKER SOCIAL HX PSYCH ---
Social History Basic Assessment Insurance Authorization: Insurance #1: Insurance name: [facility] Phone number: Policy number: [id number] Group number: Authorization number: Curr Source of Income/Entitlements: Medicaid Primary Care Physician: Patient's PCP: JEREMIAS RICHARDSON APRN PCP's Present Problem: Per Vazquez Agustin's Psychiatric Consultation: Pt is a 31 year old single female BIBA from [facility]. Pt was seen at [facility] by Cheryle Hart APRN whom the pt told she was having suicidal thoughts. Pt reports she has been binging on Cocaine for the past two weeks and now she feels like "hurting myself in anyway". Pt states she hasn't had much sleep or food within the past two weeks. Current stressors, pt recently was thrown out of her boyfriend's home (in a relationship 10 years). Pt states she took money from her boyfriend and bought "things for my son's birthday" and also use the money from her boyfriend for drugs. The boyfriend found out and threw her out of his home. Pt is unemployed and now homeless. Pt states her mother too is homeless and lives out of her car. Pt has a 13 year old son Noel, who lives with his father in [place]. Pt was alert and oriented. Pt states she was unaware that she was snorting Heroin, pt believed she was snorting Cocaine instead. However her Utox is positive for Opioid, not Cociane. Pt's mood was depressed, her attitude was calm and cooperative. Pt appeared motivated for help as she stated she went to her outpatient treatment today, even though her appointment was not until 08/25/16. Pt denies having homicidal thoughts and no reports of hallucinations. Pt has a history of a mental health diagnosis of Bipolar Disorder since "I was teenager". Pt has had multiple inpatient admissions. Pt was admitted to [facility] in 2009, 2010 and 2015. Pt was also admitted to [facility] ([facility] In September, pt was discharged from [facility] with a diagnosis of Bipolar Disorder I, depressed episode. Also, pt reports a history polysubstance use that began at age 16. Pt states she has participated and completed IOP treatment at both [facility] and [facility] IOP. Pt's Utox positive for Opioids. Pt states she stopped taking her psychotropic medication for approximately 2 weeks since the increase in her cocaine & opioid use. Primary Language? Citizen [place] Language(s) Spoken At Home: Citizen [place] Living Situation Other Living Arrangement: no residence Feel Safe Where You Are Living No (currently homeless ) Comments: Boyfriend with whom she lived with for many years recently kicked her out of the home Allergies - Coded Allergies: NO KNOWN ALLERGIES (09/29/15) Current Medications - Scheduled Medications Benztropine Mesylate 1 MG TABLET 1 TAB PO TID MENTAL HEALTH #90 (Reported) Entered as Reported by RENETTA LANDAVERDE on 09/29/151928 Last Taken: At an unknown date and time Budesonide/Formoterol Fumarate (Symbicort 160-4.5 Mcg Inhaler) 10.2 GM HFA.AER.AD 2 PUF INH BID ASTHMA #10 (Reported) Entered as Reported by RENETTA LANDAVERDE on 09/29/151929 Last Taken: At an unknown date and time Hydrochlorothiazide 12.5 MG CAPSULE 1 CAP PO DAILY DIURETIC #30 (Reported) Entered as Reported by RENETTA LANDAVERDE on 09/29/151927 Last Taken: At an unknown date and time Levothyroxine Sodium 200 MCG TABLET 1 TAB PO DAILY THYROID #30 (Reported) Entered as Reported by RENETTA LANDAVERDE on 09/29/151927 Last Taken: At an unknown date and time Metformin HCl (Metformin HCl ER) 500 MG TAB.ER.24H 1 TAB PO BID DIABETES #30 (Reported) Entered as Reported by RENETTA LANDAVERDE on 09/29/151928 Last Taken: At an unknown date and time Scheduled PRN Medications Albuterol Sulfate (Proair Hfa) 8.5 GM HFA.AER.AD 2 PUF INH PRN ASTHMA #9 ( Reported) Entered as Reported by RENETTA LANDAVERDE on 09/29/151928 Last Taken: At an unknown date and time Discontinued Medications Chlorpromazine HCl 25 MG TABLET 1 TAB PO 4 TIMES/DAY MENTAL HEALTH #120 ( Reported) Discontinued reason: Per Doctor Decision Last Taken: At an unknown date and time Diazepam 2 MG TABLET 1 TAB PO BID ANXIETY #60 (Reported) Discontinued reason: Per Doctor Decision Last Taken: At an unknown date and time Consequences of Psych Med Use: Home meds include: Valium, Thorzine, Cogentin Past History Past Medical History Neurological: NONE EENT: NONE Cardiovascular: EDEMA Respiratory: NONE Gastrointestinal: NONE Hepatic: cholecystitis, ENLARGED LIVER Renal: NONE Musculoskeletal: NONE Psychiatric: depression, substance abuse Endocrine: diabetes, hypothyroidism Blood Disorders: NONE Cancer(s): NONE NURSING CENTER TUTOR/Reproductive: NONE Past Surgical History Surgical History: non-contributory /Family History Place/Country of Origin: "here", when asked if she meant [facility], she said, no. "I dont know where I was born. I can't remember those kind of details. My brain is shot" Childhood Family Constellation: Grandmother raised her- mother was unable to care of her, siblings went into foster care, father left when she was little Primary Childhood Caretakers: maternal grandmother Family Life During Childhood: "It was okay." DCF Involvement? No Relationship w/Mother: "She's homeless" Relationship w/Father: "He left when I was a little girl." Any Sibling(s)? Yes Sibling's Gender(s)/Age(s): male Sibling 1:, female Sibling 2: Relationship w/Sibling(s): "I don't know them very well". My siblings went into foster care when we were little Relationship w/Friends: They are bad influences Family Psych/Sub Abuse/Add Hx: denies Number of Pregnancies: 5 Number of Miscarriages: 2 Number of Abortions: 2 Abuse/Trauma History Trauma History/Current Trauma: Denies Legal History Legal Guardian/Address/Phone: Self Current Legal Status: none Pending Court Dates: n/a Have you ever been arrested No Number of Arrests: 0 Hx of Juvenile Legal Charges? No Hx of Adult Legal Charges? No List/Date Most Recent Lgl Chgs: N/A Chgs/Dts/Incarcerations/Sentnc N/A Civil Proceedings: N/A Domestic Relations Court: N/A Child Protective Serv Involvmnt N/A Rn Community Health None Psychosocial History Primary Support System: son, Son's father (ex boyfriend) Strengths/Capabilities: Pt participated in treatment at [facility], Pt is motivated for help, patient wants to do the IOP program at [facility] Physical Limitations (Interventions): None known Last Physical: Unknown History of Seizures? No History of Blackouts? No ADL Limitations: Denies Toney/Social/Peer Relations Friends are a bad influence Meaningful Activities: Work out Read Spend time w/ son Childhood Zoroastrian: no amish stated Current Samaritan Affiliation: no amish stated Is Spirituality Important to You? No Patient's Ethnicity: Unknown Cultural/Ethnic Issues: Denies Are There Developmental Issues? No Milestones Achieved: fine motor, gross motor Psychiatric Treatment History Psych Treatment Inpatient Treatment Yes Outpatient Treatment Yes Location of Treatment [facility] and [facility] Reason for Treatment Bipolar Disorder Depression Dates of Treatment 2009, 2010, 2015 Response to Treatment "On and Off" participation in treatment Precipitating Factors: SI, depression Current Hand Stoner: [facility] Treatment of Prior Episodes: See above Diagnosis: Bipolar Disorder Opiate Use Disorder Cocaine Use Disorder Psychodynamic Issues: Father left when she was a little girl, no contact with father. Siblings went into foster care when she went to live with her maternal grandmother. She does not have contact with her siblings. Risk Factors: high anxiety/distress, history of suicide atmpts, SA/ hospitalized, substance abuse, poor impulse control, limited support Substance Use/Abuse History Drug Use/Abuse 1 Substance Used/Abused Heroin First Use Age 16 Last Used 08/14/16 * Pt thought she was using Cocaine How much used/taken unknown How often Daily For how long Two Weeks Route of use IV at age 16, recently snorting Drug Use/Abuse 2 Substance Used/Abused Cocaine First Use unk Last Used unk, thought she was using cocaine until ED informed her it was opiates How much used/taken unk How often unk For how long unk Route of use snort Drug Use/Abuse 3 Substance Used/Abused Hallucinogens First Use 16 Last Used unk How much used/taken varied How often varied For how long it was a long time ago, per pt Route of use Ecastacy & LSD Have Had Periods of Sobriety? Yes Explain: During inpatient hospitalization Pt no longer uses Ecastacy or LSD Relapse History? Yes Have You Ever Attended AA? Yes Do You Attend AA Currently? No Do You Have a Sponsor? No Other Community Resources Used: [facility] Symptoms of Use: Suicidal ideation Depressive state Substance Abuse Treatment Substance Abuse Treatment Inpatient Treatment No Outpatient Treatment Yes Location of Treatment [facility], [facility] IOP Reason for Treatment Polysubstance use Cocaine, Heroin Ecstasy Dates of Treatment 2010, 2013 Response to Treatment Relapse, Sexual History Sexually Active Yes # of partners 1 Sexual Orientation Heterosexual Use of Protection No Sexual Concerns: None reported Education History Highest Level of Education: did not complete HS Highest Grade Completed: 11th Vocational Year Completed: 0 Number of College Years: 0 Preferred Learning Style: experiential HX of Learning Difficulties: None reported. She was likely not identified as needing special education. However pt reports that the work was too difficult for her so she just stopped trying and eventually left school in 11th grade Barriers to Learning: None reported Special Communication Needs: None reported Employment History Employment Unemployed Vocation/Occupational Hx: had a job at [employer], over 5 years ago No. of Jobs in Last 5 Years: 0 History Have You Been in The ? No Current Mental Status Mental Status Orientation: Person, Place, Situation Affect: Depressed, Lonely, Sad Speech: Normal Neuro-vegetative: Appetite Decreased, Energy Decreased, Helpless, Loss of Interest, Sleep Disturbance Appearance Appearance- Dress/Hygiene: Disheveled, unkempt Behaviors Thought Process: Disorganized Thought Content: WNL Memory: Impaired Insight: Poor SI/HI Risk Assessment Past Suicidal Ideation/Attempts Yes Current Suicidal Ideation/Att No Past Homicidal Ideation/Att: No Current Homicidal Ideation/Attempts No Degree of Intent: Pt reported SI on 08/14, no SI today 08/16 Danger To: Self Gravely Disabled: Lack of Insight, Poor Impulse Control, Poor Judgment Risk Factors: High Anxiety/Distress, SA/ Hospitalization(s), Hx of suicide attempt(s), Isolated/no social suppor, Male, Substance Abuse Lethality Ratin - Conclusion and Recommendations for treatment - and discharge planning Summary: Pt is 31 year old female with a long history of substance abuse and mental health treatment. Currently, patient has been on a "drug binge" for 2 weeks. She thoguht she was using Cocaine but her utox revealed it was opiates. Pt presents as sad and depressed but is future oriented as she was discussed with this clinician that she wants to complete the [facility] IOP rather than the [facility] IOP since she is already connected to [facility]. She saw her son today and reports it was a good visit. She does have the option to go live with her son and his father (her ex) when she lives the hospital.
--- NOTE | 2016-08-16 17:36 | NUR ---
PT IS CALM, COOPERATIVE WITH STAFF AND PEERS, AND COMPLIANT WITH UNIT RULES. OFTEN IN MILIEU, INTERACTING WELL WITH OTHERS. MOOD IS STABLE, AFFECT IS EUTHYMIC TO FULL RANGE, COMMUNICATION IS ORGANIZED AND APPEARS NORMAL IN ALL RESPECTS, AND APPETITE IS NORMAL. PT DENIES SI AT THIS TIME.
[2016-08-17] VITALS (10 sets, daily range): BP systolic 94–128; BP diastolic 52–78
--- NOTE | 2016-08-17 13:07 | NUR ---
PT IS COMPLIANT AND COOPERATIVE WITH UNIT RULES. PT IS OUT IN THE COMMUNITY ITNERACTING WELL WITH STAFF AND PEERS. PT HAS BEEN ACTIVE IN GROUPS TODAY. PT MOOD IS STABLE WITH A FULL RANGE AFFECT. PT DENIES SI THOUGHTS. PT IS NOT SCORING ON CIWA ASSESSMENT
--- NOTE | 2016-08-17 15:48 | SOCIAL WORKER PROG NOTE PSYCH ---
Social Work Progress Note Progress Note Met with Cathy, she stated she relapsed on Heroin (she thought it was cocaine), over the past 2 weeks. She said her boyfriend of 10yrs became very upset and asked her to leave. She reports she was clean over the past year, and has been in outpatient treatment with Marguerite Dickey APRN. Today, Cathy reported she is not ready to discharge, feels at risk of relapse if she leaves too soon. She is reporting feeling hopeless, depressed (denied SI/HI, no AH/VH). She rates her anxiety 0/10 (worst): 8 and depression 0/10:6. She stated she is having sweats, restless sleep, increased anxiety. 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 Cathy stated "more time" and less anxious. She refused an in-person family meeting (stated "I don't have anyone."). She did however, agree for a call to her 13yo son's grandfather, Lance Chery PH#, to confirm that she can live with him (and her 13yo son, as well as her ex -). Mr. Chery stated he is willing to haver her in his home, but he isn 't sure if he can do this again, if she relapses he may not be able to help her. He stated she was clean for a long time (1year), and is concerned about the impact on her 13yo son, knowing more about her drug use and it's effect on him. Cathy stated she did not use around her son, that her son was with his grandparents, Mr. Chery. Phoned [facility] - confirmed her med appointment with Marguerite Dickey APRN is for 08/25/16 at 10:40am. [facility]ic[facility]. Spoke with MR. Chery (son's grandfather) (EUGENIA in Chart) - he stated PT. was not using near or around her son. He stated she did appear at times as if "something was wrong." He stated Cathy doesn't drive so she never drove with her son. Completed [facility] Review - check web for next review date.
--- NOTE | 2016-08-17 15:52 | SOCIAL WORKER TX PLAN PSYCH ---
Treatment Plan - Please Document: - Evidence that there is ongoing collaboration between - the patient and the interdisciplinary team, - including the patient's active participation and - responsibility for engaging in the treatment regimen, - and that the treatment plan is individualized and - relevant to the patient's conditions. - Treatment plan should reflect documentation indicating - that all active therapeutic efforts are included. Strengths/Capabilities: Pt participated in treatment at [facility], Pt is motivated for help, patient wants to do the IOP program at [facility] Physical Limitations (Interventions): None known Patient Identified Trmt Goals: Stay clean off drugs Discharge Plan: [facility] IOP AA/NA meetings daily Problem/Goals #1 Problem #1: suicidal ideation Goal (Short Term): Be safe on unit, 15min checks. Verbalize feelings/thoughts to staff, be visible in millieu. Attend all MH groups, and share. Idenitify 1-2 triggers to SI, and identify 1-2 coping skills. Goal (Penitentiary): Maintain stable mood, engage in aftercare follow-up (IOP). Interventions: Individual therapy with professor of social work daily as well as famiily meetings as needed, medication visits daily with COMPLIANCE ANALYST/MD, group therapy 4x per day, accupuncture, relaxation, etc. Nursing monitoring. Modalities: Provide treatment to include CBT, DBT, OH and strengths-based therapy. Problem/Goals #2 Problem #2: Opiate Use Goal (Short Term): Safe stay on unit, 15min checks, verbalize 1-2 triggers to use, and gaps in recovery plan. Pt. to attend all SA groups, and develop insight into relapse. Goal (Penitentiary): Maintain sobriety. Follow-up in aftercare treatment. Attend AA meetings. Interventions: Individual therapy with professor of social work daily as well as famiily meetings as needed, medication visits daily with COMPLIANCE ANALYST/MD, group therapy 4x per day, accupuncture, relaxation, etc. Nursing monitoring. Modalities: Provide treatment to include CBT, DBT, OH and strengths-based therapy. DSM5/PS Stressors/Medical Prob Diagnosis' (DSM 5, Stressors, Medical): F31.9 Bipolar Disorder Unspecified, F11.20 Opioid Use Disorder Severe, F14.20 Cocaine Use Disorder Severe Medical Condition, hypothyroidism, hypertension Z59.1 inadequate housing, Z55.9 Educational problems, Z56.9 other problems related to employment Current GAF: 20 Treatment Team - Responsibilities of members of the treatment team include: - Medication Management- MD or COMPLIANCE ANALYST - Medication Administration and Monitoring- Nurse - Group Therapy- Occupational Therapist - 1:1 Therapy,Disch Planning,family involvement-Production Estimator
--- NOTE | 2016-08-17 18:38 | CP SOUTH PROGRESS NOTE PSYCH ---
Psych (Inpt) Progress Note Progress Note Include the following elements, when applicable: Involvement in the active treatment of the patient with behavioral observations of the patient and the patient's response to the treatment. Review of the ongoing treatment process in the context of the treatment plan. Indication of how multi-disciplinary staff members are carrying out the treatment plan. Plans for future interventions and recommendations for revision of the treatment plan. Liaison with other physicians/providers. Progress Note: PSYCHIATRIST NOTE, 08/17/2016: I discussed this patient's presentation and progress to date, current mental status, treatment and discharge planning with staff team today in the daily morning ITTM and our medical student, Susanne RENAE, and I met together with patient in individual session. Patient's most recent [facility] admission, in 08/2015 was also precipitated by problems in relationship with boyfriend which at that time had caused her to overdose on approximately #100 25mg Thorazine tablets though the number of pills taken was questioned by the E.D. attending physicians. She claims to have been completely clean (and grandfather apparently confirms this) since discharge from [facility] a year ago up until TRANSFER COORDINATOR; her relapse had apparently not been a one time thing, her taking the money for son's birthday gift and spending it on drug, but to have gone on for she now says "two weeks" prior to her presentation for admission and thus her need for some formal opioid detox (with Suboxone) since admission; she will receive last tapering dose of Suboxone tomorrow, 08/18/2016. I plan to increase current dose of Thorazine from 75mg to 100mg HS, as this appears to be her only treatment at present for diagnosis of bipolar disorder; however, we have not seen patient independent of some active substance abuse, so the question of how much influenced by such behavior is her "mood disorder" remains to be seen, as to whether she indeed has a bipolar illness independent of her history of polysubstance use/abuse. We will be closely monitoring her mood.
--- NOTE | 2016-08-17 20:18 | NUR ---
PT HAS BEEN IN THE MILEU AND APPEARS TO BE IN A RELATIVELY POSITIVE MOOD. SHE HAS INITIATED SMALL TALK WITH STAFF AND APPEARED GENUINELY FRIENDLY AND INTERESTED. PT HAS BEEN COOPERATIVE AND DENIES ANY THOUGHTS OF SI AT THIS TIME.
[2016-08-18] VITALS (11 sets, daily range): BP systolic 90–139; BP diastolic 54–73
--- NOTE | 2016-08-18 04:55 | NUR ---
SLEPT WELL NO ISSUES.
--- NOTE | 2016-08-18 12:35 | NUR ---
PT IS COMPLIANT AND COOPERATIVE WITH UNIT RULES. PT IS OUT IN THE COMMUNITY INTERACTING WELL WITH STAFF AND PEERS. PT MOOD IS STABLE WTIH A CONSTRICTED AFFECT. PT IS NOT FEELING READY FOR DISCHARGE AND EXPRESSED THESE THOUGHTS TO THE DR TODAY. PT IS ATTENDING SOME GROUPS. PT DENIES SI THOUGHTS
--- NOTE | 2016-08-18 13:37 | SOCIAL WORKER PROG NOTE PSYCH ---
Social Work Progress Note Progress Note Met with pt, she reports not feeling prepared for discharge, she reports feeling achy, and notes she did not sleep well. Pt reports she agrees to IOP level of care at [facility]. A phone call was placed to [facility] requesting an intake appointment/ clinical was faxed. Patients lips were very dry, she could not stop licking them, and reports her mouth is dry. Pt indicates she is open to attending meetings again, and wants to get a sponsor, it is unclear as to how returning to the in laws will be supportive, although they report she can go there, she is refsuing a family meeting, "they are not like that, they are not down to earth people". Pt would benefit from recovery work, and focusing on goals that prevent relapse. She states she had been clean until 2 weeks a go since her last admission here in September 2015.
--- NOTE | 2016-08-18 18:20 | NUR ---
PT IS CALM, COOPERATIVE WITH STAFF AND PEERS, AND COMPLIANT WITH UNIT RULES. OFTEN IN MILIEU, INTERACTING WELL WITH OTHERS. CAN BE SLIGHTLY WITHDRAWN AT TIMES. MOOD IS STABLE, AFFECT IS EUTHYMIC TO FULL RANGE, COMMUNICATION IS ORGANIZED AND APPEARS NORMAL IN ALL RESPECTS, AND APPETITE IS NORMAL. PT DENIES SI AT THIS TIME.
--- NOTE | 2016-08-18 18:44 | CP SOUTH PROGRESS NOTE PSYCH ---
Psych (Inpt) Progress Note Progress Note Include the following elements, when applicable: Involvement in the active treatment of the patient with behavioral observations of the patient and the patient's response to the treatment. Review of the ongoing treatment process in the context of the treatment plan. Indication of how multi-disciplinary staff members are carrying out the treatment plan. Plans for future interventions and recommendations for revision of the treatment plan. Liaison with other physicians/providers. Progress Note: PSYCHIATRIST NOTE, 08/18/2016: I discussed this patient's progress to date, current mental status, treatment and discharge planning with staff team today in the daily morning ITTM and also our medical student, Susanne RENAE, and I met with patient again today in individual session. Patient c/o still being achy from opioid withdrawal; she is receiving Suboxone, 2/0.5mg SL x2 today and a single dose is scheduled for tomorrow to complete detox. She also reported poor sleep last night with little benefit from low dose trazodone; I plan to double trazodone PRN tonight to 50mg and increase HS Thorazine from 100mg to 125mg (she had previously been treated with 125-150mg/day). Patient plans to return to see Megan Dickey APRN, at [facility] in [place], [place]., and enter their dual focus IOP as well. Patient claims she now has a place to stay on discharge. There is no evidence thus far of significantly depressed mood as she completes detox; I asked her directly today whether she thought she had had any depressions without concurrent substance use/abuse; she answered "no; I was "using" everytime;" She is not on an anti-depressant since admission and had been on none at time of most recent [facility] discharge in 09/2015. I am at a loss to understand why patient is currently prescribed Cogentin, 1mg 3x/day; that is a high dose of this anti-cholinergic agent, it was not listed on discharge summary from 09/2015, and there is apparently no neurological disorder for which it is needed in this case; patient should not need 3mg/day of Cogentin while on low dose Thorazine; I will begin taper down to 1mg 2x/day tomorrow, 08/19/2016.
[2016-08-19] VITALS (8 sets, daily range): BP systolic 99–127; BP diastolic 65–80
--- NOTE | 2016-08-19 04:07 | NUR ---
AWAKE FEW TIMES DURING THE NIGHT.
--- NOTE | 2016-08-19 11:07 | SOCIAL WORKER PROG NOTE PSYCH ---
See Addendum Social Work Progress Note Progress Note Met with Cathy, she reports she is feeling better, she is having sweats, and restless sleep. She stated she is feeling nauseous, and has thrown up "a little " several times. She rates her depression 0/10: 2, anxiety 0/10:10. She states she wants to folow-up at [facility] IOP - has an DUAL IOP orientation scheduled for 08/21/16 for 9am (1hr) with José Luis Perdomo LCSW. She has a medication appointement with Megan Dickey APRN on . 08/25/16 at 10:40am with Megan Dickey APRN. Cathy wanted to do a phone meeting with her son's Father, Lance Chery - called his home (Lance lives with his Father, also Lance Chery and Cathy's son. Lance Chery (the grandfather) PH#[phone],answered and confirmed yet again, that Cathy can live with them, but made it clear to Cathy that she cannot relapse or " You will be out of the house." Cathy understood, and stated she wanted to talk to her son's Father, Lance - who was working and is not off until 7pm-8pm. Cathy stated she would call him later. Cathy wanted to know if she can stay on Suboxone after discharge, encouraged her to talk to her prescriber about this. She hopes to continue her stay inpatient until Wednesday. INformed her to talk to her prescriber, Dr. Velazco further about this.
--- NOTE | 2016-08-19 13:59 | NUR ---
PT VISIBLE IN THE MILIEU THROUGHOUT THE DAY. HER GOAL WAS TO TALK TO SOCIAL WORK AND AUTOMOBILE INSPECTOR. IN THE MILIEU PT IS GOING TO GROUPS AND INTERACTING WITH PEERS AND STAFF. SHE IS COOPERATIVE WITH STAFF DIRECTION AND DENIES THOUGHTS TO HURT HERSELF.
--- NOTE | 2016-08-19 16:42 | CP SOUTH PROGRESS NOTE PSYCH ---
Psych (Inpt) Progress Note Progress Note Include the following elements, when applicable: Involvement in the active treatment of the patient with behavioral observations of the patient and the patient's response to the treatment. Review of the ongoing treatment process in the context of the treatment plan. Indication of how multi-disciplinary staff members are carrying out the treatment plan. Plans for future interventions and recommendations for revision of the treatment plan. Liaison with other physicians/providers. Progress Note: Medication list reviewed. Case and treatment plan discussed in team meeting. Staff reports that CIWA scores are low, and I discontinued CIWA. Was due for last dose of Suboxone at noon. Not feeling ready for discharge. We learned that patient may be able to live with her in-laws. Patient seen at 3:20 PM. She is a casually dressed, ambulatory, overweight white female sitting in a chair in no acute distress. She is calm, polite and cooperative. There is no psychomotor agitation or retardation. Speech is normal in volume, rate and tone. Affect is calm and blunted. Feels good. Denies having any questions or problems. Reports mood is okay, so-so. Rates sad mood maybe 6/10 and anxiety 10/10. Feels hopeless and helpless. When asked if feeling worthless, she responded "not really." States she does not really think that she feels guilty. Denies suicidal thoughts at this moment. Went on to say she last had suicidal thoughts last September. Denies homicidal ideation. Denies auditory hallucinations. Occasionally feels someone is behind her and states "it's kind of creepy." Denies magical da silva. Reports sleep is still so -so and it is driving her nuts. Reports appetite is nothing. Describes energy as "running slow" and it drives her nuts. Patient's thinking is a little confused, especially around use of pronouns. Patient reports Suboxone helped her anxiety and she is looking for something else like it. Did not like Neurontin in the past. Reports she is on Thorazine for voices. She agrees to Thorazine 25 mg p.o. q.8 hours p.r.n. for and anxiety, agitation or insomnia. IMPRESSION: Slow progress. Continue present treatment plan.
--- NOTE | 2016-08-19 17:26 | SOCIAL WORKER PROG NOTE PSYCH ---
Social Work Progress Note Progress Note Per Bernie Rogers, of [facility] - Cathy can attend the IOP orientation on 08/21 at EITHER 9am or 11am. (1hr). She will recieve her IOP schedule at that time. Cathy stated she can take the bus to [facility].
--- NOTE | 2016-08-19 18:40 | NUR ---
PT IS CALM, COOPERATIVE WITH STAFF AND PEERS, AND COMPLIANT WITH UNIT RULES. OFTEN IN MILIEU, INTERACTING WITH OTHERS. MOOD IS STABLE, AFFECT APPEARS EUTHYMIC TO TO FULL RANGE, COMMUNICATION IS ORGANIZED AND APPEARS NORMAL IN ALL RESPECTS, AND APPETITE IS NORMAL. PT DENIES SI AT THIS TIME.
--- NOTE | 2016-08-19 21:16 | Event Note ---
Event Note Event Note: 31 yo F with h/o DM, HTN, hypothyroidism admitted for SI. Rapid response was called around 9 pm, as patient was found on the floor of the hallway. Patient reported feeling dizzy, reached for the railing and fell. She hit her right side of head to the wall. She did not pass out. She also twisted her left foot in this process. She denies vision changes or headache. Denies chest pain, palpitations, dyspnea. Of note, patient had been increasingly anxious during the evening and required two doses of thorazine (25 mg and 50 mg). Vitals were stable, accuchek 172, neuro exam intact. Orthostats were positive Sitting 134/86 --> 111/83 Standing. She c/o left foot pain, xray was negative. We have placed her on neurochecks Q6. EKG was sinus rhythm. She is probably orthostatic from the thorazine. Will encourage PO fluid intake and consider compression stockings. I have discontinued the HCTZ as her BP has been borderline through her stay in [facility]. Repeating labs in AM. Also, her thyroid functions have been deranged, while on synthroid ? noncompliance. I have asked RN to consult Endocrine in AM.
--- NOTE | 2016-08-19 21:53 | RADIOLOGY REPORT ---
EXAMINATION: XR FOOT, LEFT CLINICAL INFORMATION: Status post fall. Pain. Rule out fracture. COMPARISON: None TECHNIQUE: AP, lateral, and oblique views of the left foot. FINDINGS: No acute fracture or dislocation is identified. Bony mineralization is normal. The joint spaces are maintained. The soft tissues are unremarkable. IMPRESSION: No acute osseous traumatic findings.
--- NOTE | 2016-08-19 23:25 | NUR ---
PT INCREASINGLY ANXIOUS AND PARANOID DURING EVENING SHIFT REQUIRING INTERVENTION BY CHARGE NURSE/STAFF TO ORIENT PT TO REALITY AND PROVIDE REASSURANCE THAT STAFF AND PATIENTS WERE NOT GOING TO "KILL" OR "STAB" HER. PT STATED THAT SHE "HEARD" VARIOUS PEOPLE SAY THINGS THAT WERE NOT SAID SUCH BEING CALLED A "CUNT." PT ALSO STATED THAT SHE SAW A LARGE "KNIFE WITH A BROWN HANDLE" IN ANOTHER PATIENT'S "PANT LEG." TOLD MHW IN PRESENCE OF CHARGE NURSE, "I SEE THAT BIG SYRINGE YOU HAVE AND YOUR GONNA STICK ME WITH IT." INTERVENTIONS ONLY TEMPORARILY EFFECTIVE. PT OFFERED AND ACCEPTED PRN DOSE OF 25 MG THORAZINE AT APPROX. 1830. ANOTHER 50MG DOSE ADMINISTERED @ 2026 DUE TO INEFFECTIVENESS OF FIRST DOSE TO DECREASE ANXIETY AND PARANOIA. AT APPROX. 2100, PT FOUND ON FLOOR OF HALLWAY. PT SAID SHE HAD FELT DIZZY, REACHED OUT FOR RAILING, "MY HAND SLIPPED AND I FELL." PT STATED HER LEFT ANKLE HURT AND SHE HIT RIGHT SIDE OF HEAD ON WALL. PT DID NOT PASS OUT. RAPID RESPONSE CALLED. STAT LEFT ANKLE XRAY ORDERED. RESULT NEGATIVE. PT NEUROLOGICALLY INTACT. ORTHOSTATIC HYPOTENSION NOTED DURING ORTHOSTATIC BP CHECKS DONE SITTING,STANDING,STANDING IN HALLWAY PER DR WELLER. SITTING 134/86 P110 STANDING 111/83 P119 STANDING 113/[address] ROSALES TO REPORT PT STATUS. HEAD CT SCAN NOT NECESSARY PER DR WELLER. NO C/O HEAD PAIN. PT AWAKE, ALERT, ORIENTED TO PERSON, PLACE AND TIME, THOUGH REMAINED ANXIOUS AND DELUSIONAL, TELLING ASSESSING DOCTOR "I HAVEN'T EATEN IN TWO WEEKS." FSBS 172. NO SEDATION NOTED AT TIME OF FALL. PT ORDERED 1:1 FOR SAFETY. .
--- NOTE | 2016-08-20 07:14 | NUR ---
PT WAS VERY ANXIOUS AND PARANOID ON EVENINGS. SHE RECEIVED 25 MG CPZ PRN AND 50 MG CPZ ONE TIME DOSE. AROUND 2100, PT FELL, HURTING HER LEFT ANKLE AND RIGHT SIDE OF HER HEAD. A RAPID RESPONSE WAS CALLED. PT WAS ORTHOSTATIC. SHE COMPLAINED OF LEFT ANKLE PAIN. X RAY OF THE ANKLE WAS NORMAL. EKG WAS OK'D BY HOSPITALIST DR WELLER. DR WELLER : DC'D THE HCTZ; ORDERED LABS FOR THE AM; REQUESTED WE GET AN ENDOCRINE CONSULT FOR THE PATIENT BECAUSE OF ALTERED THYROID VALUES; ASKED US TO ENCOURAGE FLUIDS; AND ASKED THE PSYCHIATRIST TO CONSIDER USING A MED OTHER THAN CPZ BECAUSE OF ORTHOSTATIC HYPOTENSION CONCERNS. PT WAS PUT ON 1:1. PT SLEPT THRU THE NIGHT.
[2016-08-20 08:14] LABS: ABSOLUTE BASOPHIL COUNT 0 /CUMM (0.0-0.2); ABSOLUTE EOSINOPHIL COUNT 0.1 /CUMM (0.0-0.7); ABSOLUTE GRANULOCYTE CT 2.5 /CUMM (1.4-6.5); ABSOLUTE LYMPH COUNT 2.2 /CUMM (1.2-3.4); ABSOLUTE MONOCYTE COUNT 0.4 /CUMM (0.10-0.60); BASOPHIL % 0.4 % (0.0-2.0); EOSINOPHIL % 2.1 % (0-5); GRANULOCYTE % 48.1 % (42.2-75.2); MEAN CORPUSCULAR HGB 28.1 PG (27.0-31.0); MEAN CORPUSCULAR HGB CONC 34.1 G/DL (33.0-37.0); MEAN CORPUSCULAR VOLUME 82.6 FL (81.0-99.0); MEAN PLATELET VOLUME 9.3 FL (7.4-10.4); PLATELET COUNT 157 /CUMM (130-400); RBC DISTRIBUTION WIDTH 12.6 % (11.5-14.5); WHITE BLOOD CELL COUNT 5.3 /CUMM (4.8-10.8)
[2016-08-20 09:17] LABS: HEMATOCRIT 39.6 % (37-47)
[2016-08-20 09:52] VITALS: BP 98/47
--- NOTE | 2016-08-20 10:00 | SOCIAL WORKER PROG NOTE PSYCH ---
MONSE ABREUYOON Bianchi 08/20/16 1326: Social Work Progress Note Progress Note Pt reports she heard 4 or 5 residents talking about her, and she thought a female patient was holding knife, she became confused and began to panic, leading her to become dizzy and disoriented. This incident was documented last night, she has a hx of hearing voices and seeing things, pt believes what she reported to be true, she is exhibiting limited insight, I asked her if she had a hx of ah/vh, she stated "No", further into the covnersation I asked her what she was on thorazine for, she indicated "for hearing voices and seeing things, Adali been on it for a long time". Pt reports poor sleep, and she is expecting to have family visitors tonight. She thought it was August 18, and did not know who the current or previous president is, stating "I dont watch TV or read the newspaper ". I left a message requesting a new IOP intake with [facility], waiting to hear back from Bernie Garza
--- NOTE | 2016-08-20 10:50 | NUR ---
PT IS ISOLATIVE AND WITHDRAWN, SPEDNING THE MAJORITY OF TIME IN PT ROOM OUT OF MILIEU. SLEEPING FOR MOST OF THE MORNING. CURRENTLY ON A ONE TO ONE WITH A PATIENT SAFETY MONITOR. MOOD IS STABLE, AFFECT APPEARS EUTHYMIC, COMMUNICATION IS ORGANIZED AND APPEARS NORMAL IN ALL RESPECTS, AND APPETITE IS REDUCED. PT DENIES SI AT THIS TIME.
[2016-08-20 12:29] VITALS: BP 102/68
--- NOTE | 2016-08-20 13:10 | Cons- Endocrinology ---
General Information and HPI Consulting Request Date of Consult: 08/20/16 Requested By: Dean Reason for Consult: management of hypothyroidism and DM type 2 Source of Information: patient, old records Exam Limitations: no limitations History of Present Illness: 31 yo female with h/o DM type 2, HTN, hypothyroidism admitted for suicidal ideation. She was supposed to be on Levothyroxine 200 mcg daily and metformin 500 mg twice a day. However, over the past 2 weeks she was doing the drugs and didn't take the medications for DM and thyroid. On admission, her TSH was 32.6 and free T4 0.84; her HbA1c was 8.5%. In the hospital, she was restarted on Levothyroxine 200 mcg daily and metformin 500 mg twice a day. She feels better. Her morning FSG was 143. Allergies/Medications Allergies: Coded Allergies: NO KNOWN ALLERGIES (09/29/15) Home Med List: Albuterol Sulfate (Proair Hfa) 8.5 GM HFA.AER.AD 2 PUF INH PRN ASTHMA ( Reported) Benztropine Mesylate 1 MG TABLET 1 TAB PO TID MENTAL HEALTH (Reported) Budesonide/Formoterol Fumarate (Symbicort 160-4.5 Mcg Inhaler) 10.2 GM HFA.AER.AD 2 PUF INH BID ASTHMA (Reported) Hydrochlorothiazide 12.5 MG CAPSULE 1 CAP PO DAILY DIURETIC (Reported) Levothyroxine Sodium 200 MCG TABLET 1 TAB PO DAILY THYROID (Reported) Metformin HCl (Metformin HCl ER) 500 MG TAB.ER.24H 1 TAB PO BID DIABETES ( Reported) Review of Systems Review of Systems Constitutional: Reports: see HPI. Cardiovascular: Denies: chest pain, palpitations. Respiratory: Denies: short of breath. GI: Denies: abdominal pain. Genitourinary: Denies: dysuria. Neurological/Psychological: Reports: depressed. Hematologic/Endocrine: Denies: polyuria, polydipsia. Past History Travel History Traveled to [place] past 21 day No Medical History Neurological: NONE EENT: NONE Cardiovascular: EDEMA Respiratory: NONE Gastrointestinal: NONE Hepatic: cholecystitis, ENLARGED LIVER Renal: NONE Musculoskeletal: NONE Psychiatric: depression, substance abuse Endocrine: diabetes, hypothyroidism Blood Disorders: NONE Cancer(s): NONE ASSURANCE AUDITOR/Reproductive: NONE Surgical History Surgical History: non-contributory Family History Relations & Conditions If Any: Relation not specified for: *No pertinent family history Psychosocial History Services at Home: None Primary Language: Bahraini Smoking Status: Never Smoked ETOH Use: occasional use Illicit Drug Use: cocaine Functional Ability ADLs Independent: dressing, eating, toileting, bathing. Ambulation: independent IADLs Independent: shopping, housework, finances, food prep, telephone, transportation , medication admin. Employment History Employment: Unemployed Profession/Employer: had a job at [employer], over 5 years ago Exam & Diagnostic Data Last 24 Hrs of Vital Signs/I&O Vital Signs Date Time Temp Pulse Resp B/P B/P Pulse O2 O2 Flow FiO2 Mean Ox Delivery Rate 08/20 1229 90 102/68 08/20 0852 96.9 92 98/47 08/19 2109 97.5 08/19 2109 97.5 115 18 127/75 08/19 2109 120 113/80 08/19 210 115 18 127/75 98 / 1959 99.2 92 120/73 08/19 1558 92 113/70 Physical Exam General Appearance: no apparent distress Neck: thyromegaly (mild) Respiratory: normal breath sounds, lungs clear Cardiovascular: regular rate/rhythm Gastrointestinal: soft Extremities: no edema Labs/Jewel Results: Laboratory Tests 08/20 08/18 0640 0650 Chemistry Sodium (137 - 145 mmol/L) 134 L Potassium (3.5 - 5.1 mmol/L) 3.5 Chloride (98 - 107 mmol/L) 94 L Carbon Dioxide (22 - 30 mmol/L) 31 H Anion Gap (5 - 16) 10 BUN (7 - 17 mg/dL) 12 Creatinine (0.5 - 1.0 mg/dL) 0.8 Estimated GFR (>60 ml/min) > 60 BUN/Creatinine Ratio (7 - 25 %) 15.0 Glucose (65 - 99 mg/dL) 196 H Magnesium (1.6 - 2.3 mg/dL) 1.6 Total Bilirubin (0.2 - 1.3 mg/dL) 0.7 Direct Bilirubin (< 0.4 mg/dL) 0.2 AST (14 - 36 U/L) 21 ALT (9 - 52 U/L) 52 Alkaline Phosphatase (<127 U/L) 66 Troponin I (< 0.11 ng/ml) < 0.01 Total Protein (6.3 - 8.2 g/dL) 6.0 L Albumin (3.5 - 5.0 g/dL) 3.6 TSH (0.270 - 4.200 uIU/mL) 32.600 H Free T4 (0.79 - 2.35 ng/dL) 0.84 Hematology CBC w Diff NO MAN DIFF REQ WBC (4.8 - 10.8 /CUMM) 5.3 RBC (4.20 - 5.40 /CUMM) 4.80 Hgb (12.0 - 16.0 G/DL) 13.5 Hct (37 - 47 %) 39.6 MCV (81.0 - 99.0 FL) 82.6 MCH (27.0 - 31.0 PG) 28.1 RDW (11.5 - 14.5 %) 12.6 Plt Count (130 - 400 /CUMM) 157 MPV (7.4 - 10.4 FL) 9.3 Gran % (42.2 - 75.2 %) 48.1 Lymphocytes % (20.5 - 51.1 %) 41.4 Monocytes % (1.7 - 9.3 %) 8.0 Eosinophils % (0 - 5 %) 2.1 Basophils % (0.0 - 2.0 %) 0.4 Absolute Granulocytes (1.4 - 6.5 /CUMM) 2.5 Absolute Lymphocytes (1.2 - 3.4 /CUMM) 2.2 Absolute Monocytes (0.10 - 0.60 /CUMM) 0.4 Absolute Eosinophils (0.0 - 0.7 /CUMM) 0.1 Absolute Basophils (0.0 - 0.2 /CUMM) 0 PUBS MCHC (33.0 - 37.0 G/DL) 34.1 Assessment/Plan Assessment/Plan 31 yo female with h/o DM type 2, HTN, hypothyroidism admitted for suicidal ideation. Her TFT is off and DM is not controlled due to noncompliance. 1. hypothyroidism: agree with restarting her on Levothyroxine 200 mcg daily; monitor TSH and free T4 on 08/24/2016 to look for a trend. 2. DM: diabetic diet; continue metformin 500 mg twice a day; monitor FSGs. will follow. Consult Acknowledgment - Thank you for your consult request.
--- NOTE | 2016-08-20 13:38 | SOCIAL WORKER PROG NOTE PSYCH ---
Social Work Progress Note Progress Note Progress Note Pt reports she heard 4 or 5 residents talking about her, and she thought a female patient was holding knife, she became confused and began to panic, leading her to become dizzy and disoriented. This incident was documented last night, she has a hx of hearing voices and seeing things, pt believes what she reported to be true, she is exhibiting limited insight, I asked her if she had a hx of ah/vh, she stated "No", further into the covnersation I asked her what she was on thorazine for, she indicated "for hearing voices and seeing things, Adali been on it for a long time". Pt reports poor sleep, and she is expecting to have family visitors tonight. She thought it was August 18, and did not know who the current or previous president is, stating "I dont watch TV or read the newspaper ". I left a message requesting a new IOP intake with [facility], waiting to hear back from Bernie Garza
--- NOTE | 2016-08-20 14:01 | SOCIAL WORKER PROG NOTE PSYCH ---
Social Work Progress Note Progress Note KYRA ARELLANO [id number] 1985 KYRA ARELLANO [id number] Pended Authorization # Client Authorization # Type of Request [id number] CONCURRENT Date of Admission/ Start of Services Requested From Submission Date 08/14/2016 08/20/2016 08/20/2016
[2016-08-20 15:36] VITALS: BP 93/55
--- NOTE | 2016-08-20 19:05 | CP SOUTH PROGRESS NOTE PSYCH ---
Psych (Inpt) Progress Note Progress Note Include the following elements, when applicable: Involvement in the active treatment of the patient with behavioral observations of the patient and the patient's response to the treatment. Review of the ongoing treatment process in the context of the treatment plan. Indication of how multi-disciplinary staff members are carrying out the treatment plan. Plans for future interventions and recommendations for revision of the treatment plan. Liaison with other physicians/providers. Progress Note: PSYCHIATRIST NOTE, 08/20/2016: I discussed this patient's progress to date, current mental status, treatment and discharge planning with staff team today in the daily morning ITTM and met with her again myself in individual session. Patient had fallen last night after receiving a PRN dose of Thorazine, 50mg that evening and was placed on 1:1 sitter/observation as a fall risk. I believe it is time to switch patient from a strongly hypotensive first generation anti-psychotic of low neuroleptic potency. After discussion and description of R/B/SE of various medications, patient agreed to begin a switchover from Thorazine to Seroquel; the latter should have some of the sedative properties patient has found helpful from the former but be somewhat more potential overall; since patient is somewhat concerned that she "will not sleep" without the Thorazine, I will taper the HS dose slowly over next 3-4 days while titrating upwards on Seroquel. Patient could think of no reason why she should be on the Cogentin and agreed to stopping it on a trial basis; Seroquel has anti-cholinergic properties of its own, so she should not need Cogentin while on it. We will continue to closely monitor the transition from Thorazine to Seroquel. Patient was also seen in endocrine consultation today by Dr. Honeycutt; I spoke with Dr. 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 For further details, see Dr. Honeycutt's full consultation note from 08/20/2016 in the electronic medical record.
[2016-08-20 20:11] VITALS: BP 95/63
--- NOTE | 2016-08-20 21:37 | NUR ---
PT IS VISIBLE ON UNIT, SITTING IN LOUNGE AND SOCIALIZING WITH PEERS. REFUSED AA BUT DID ATTEND WRAP UP MEETING. COOPERATIVE AND COMPLIANT WITH STAFF. NO COMPLAINTS OR SI REPORTED. PT HAS A STABLE MOOD AND FULL RANGE AFFECT.
[2016-08-21 08:00] VITALS: BP 124/60
--- NOTE | 2016-08-21 08:44 | SOCIAL WORKER PROG NOTE PSYCH ---
Social Work Progress Note Progress Note Met with Cathy, she denied SI/HI, not psychosis - no paranoia. Cathy stated she slept "allright" last night. She said, "I feel great, alot better than when I first came in." Cathy stated her son's Father, Lance Chery visited last night with her son, Noel 13yo - she stated the visit went well. She said she is "ready to go home." She stated she is not crying anymore, "I am getting back to me again." When asked about her paranoia feelings yesterday, Cathy stated she wasn't sure why that was. INformed Cathy to speak with Dr. Choe further about plan regarding her stay. Cathy on day of discharge her Mlbkfo-rc-qqu, Lance Chery, (son's grandfather) can pick her up from CPS and bring her home. Cathy hasno concerns and feels secure about where she will be living with her son, and son's Father, Lance and grandfather, at [address] [place] [address]. Her Kkusks-bc-Wqx's (Lance Chery) . Cathy will see Marguerite Dickey APRN [facility] on . 08/25/16 at 10:40am. Left voicemail for Bernie Rogers [facility] for next [facility] IOP Orientation appointment for next week.
--- NOTE | 2016-08-21 10:13 | SOCIAL WORKER PROG NOTE PSYCH ---
Social Work Progress Note Progress Note Spoke with Bernie Rogers of Care and next IOP Orientation with José Luis Gomez is 08/24/16 at 11am with José Luis Gomez LCSW.
[2016-08-21 12:21] VITALS: BP 84/55
--- NOTE | 2016-08-21 14:25 | NUR ---
PT IS STABLE WITH FULL RANGE OF AFFECT. PT HAS BEEN VISIBLE WITHIN THE COMMUNITY AND INTERACTING WITH PEERS/STAFF MEMBERS APPROPRIATELY. PT HAS BEEN ATTENDING ALL GROUPS THIS AM SHIFT. ACCUCHECK WAS WITHIN NORMAL LIMITS. PT IS CALM, COOPERATIVE AND COMPLIANT. VS ARE STABLE AND DENIES ANY SI/HI TO THIS MHW,
[2016-08-21 16:15] VITALS: BP 112/76
--- NOTE | 2016-08-21 19:08 | CP SOUTH PROGRESS NOTE PSYCH ---
Psych (Inpt) Progress Note Progress Note Include the following elements, when applicable: Involvement in the active treatment of the patient with behavioral observations of the patient and the patient's response to the treatment. Review of the ongoing treatment process in the context of the treatment plan. Indication of how multi-disciplinary staff members are carrying out the treatment plan. Plans for future interventions and recommendations for revision of the treatment plan. Liaison with other physicians/providers. Progress Note: PSYCHIATRIST NOTE, 08/21/2016: I discussed this patient's progress to date, current mental status, treatment and discharge planning with staff team today in the daily morning ITTM and our medical student, Susanne RENAE, and I interviewed her together in individual session. There have been no further falling incidents and I will take patient off 1:1 sitter for Fall Risk today. The initial fall incident came the night before last when patient reported to nursing that "four or five patients were talking about me and I think one had a knife..." She was given Thorazine, 50mg PRN, and fell a short while later. It is clear that patient cannot safely increase dose of Thorazine beyond the low dose she has been on INVENTORY MANAGER , 75MG HS which provided little more than help with sleep induction. I am in the process of switching patient over to Seroquel from Thorazine which should still help with sleep but provide a wider window for anti-psychotic treatment/ efficacy without the degree of risk of engendering severe hypotension at even mildly higher doses. Patient says she feels very well, actually less anxious on the Seroquel but is still worried "I won't sleep without the Thorazine, so I have temporarily continued a low dose, 25mg with 25mg PRN HS for now, but it should be possible to taper that away on an outpatient basis in the near future. There appear to have been no negative effects to discontinuation of Cogentin; the high dose patient had been on could have contributed to confusion and even hallucinosis in a sensitive PATHOLOGY LAB TECHNICIAN. Overall, patient is very pleased with how her treatment is going and is looking forward to discharge early next week (after dose of Seroquel is finalized and her response monitored for safety-- particularly against potentially dangerious hypotension).
[2016-08-21 20:04] VITALS: BP 109/65
--- NOTE | 2016-08-22 04:59 | NUR ---
PT UP X 1 TO TOILET. PT DENIES PARANOIA, LOOKING FORWARD TO DC ON WEDNESDAY.
[2016-08-22 07:53] VITALS: BP 100/60
--- NOTE | 2016-08-22 09:52 | CP SOUTH PROGRESS NOTE PSYCH ---
Psych (Inpt) Progress Note Progress Note Include the following elements, when applicable: Involvement in the active treatment of the patient with behavioral observations of the patient and the patient's response to the treatment. Review of the ongoing treatment process in the context of the treatment plan. Indication of how multi-disciplinary staff members are carrying out the treatment plan. Plans for future interventions and recommendations for revision of the treatment plan. Liaison with other physicians/providers. Progress Note: I discussed this patient's progress to date, current mental status, treatment process in the context of the treatment plan, and discharge planning with staff/ team in the daily morning inpatient team meeting. I also met with the patient myself in individual session. Pt reports feeling ok. She says she wants to continue treatment in an IOP once she is dc. No current si/hi. Affect is reactive good. Vital Signs Date Time Temp Pulse Resp B/P B/P Pulse O2 O2 Flow FiO2 Mean Ox Delivery Rate 08/22 0753 97.7 83 100/60 08/22 2003 98.1 92 109/65 08/21 1615 81 112/76 08/21 1221 953 84/55 pt is wei, roxanne, cooperartive w interview. Mood is good affect reative adn appropriate, No current si/hi, no overt delusions, no hallkucianitons. IJ seems improved Pt seems to be improving COntinue w current meds and management ' Current Medications Sig/Yolanda Start time Last Medication Dose Route Stop Time Status Admin Albuterol Sulfate 2 PUF Q4P PRN 08/14 2230 AC INH Budesonide/ 2 PUF BID 08/15 1000 AC 08/22 Formoterol Fumarate INH 0815 Chlorpromazine 25 MG 0 08/21 2200 CAN PO 08/22 2201 Chlorpromazine 25 MG 2200 08/21 2200 AC 08/21 PO 2134 Chlorpromazine 25 MG AT BEDTIME NEED.. 08/21 1700 AC PO Chlorpromazine 50 MG 0 08/20 2200 DC 08/20 PO 2152 Dicyclomine HCl 20 MG 4 TIMES/DAY PRN 08/15 0830 AC 08/19 PO 2028 Ibuprofen 600 MG Q6P PRN 08/15 0830 AC 08/18 PO 1637 Levothyroxine Sodium 0.2 MG DAILY AC 06/03 0700 AC 08/22 PO 0815 Loperamide HCl 2 MG Q6P PRN 08/15 0830 AC PO Metformin HCl 500 MG 0800,1700 08/15 0800 AC 08/22 PO 0815 Ondansetron HCl 4 MG Q8P PRN 08/15 1215 AC 08/19 PO 1903 Quetiapine Fumarate 100 MG 2200 08/21 2200 AC 08/21 PO 2133 Quetiapine Fumarate 25 MG 0800,1400 08/21 0800 AC 08/22 PO 0815 Quetiapine Fumarate 50 MG 08/20 2200 DC 08/20 PO 2150 Quetiapine Fumarate 25 MG Q4H PRN 08/20 1615 AC 08/21 PO 2042 Trazodone HCl 50 MG AT BEDTIME NEED.. 08/18 1630 AC 08/21 PO 213
[2016-08-22 11:54] VITALS: BP 137/92
--- NOTE | 2016-08-22 13:59 | NUR ---
PT VISIBLE IN THE MILIEU TODAY. HER GOAL WAS TO PREPARE FOR DISCHARGE, AND NOT REPAEAT WHAT SHE WAS DOING. PT DID NOT GO TO FOCUS GROUP STATING SHE DID NOT LIKE GAMES. PT APOLOGIZED FOR NOT ATTENDING TO THIS MHW. PT HAS SOME INTERACTIONS WITH PEERS AND DENIES THOUGHTS OF HURTING HERSELF WHEN ASKED.
[2016-08-22 15:22] VITALS: BP 115/72
[2016-08-22 20:43] VITALS: BP 107/72
--- NOTE | 2016-08-22 21:43 | NUR ---
PT HAS BEEN LESS SOCIAL TODAY WITH THE STAFF AND PEERS BUT HAD A VISIT FROM THE FAMILY. THERE HAS BEEN NO OBSERVATION OR REPORTS ON HER FEELINGS AND EMOTIONS FURTHER.
--- NOTE | 2016-08-23 06:07 | NUR ---
PT SLEPT. PT SCHEDULED TO DC ON WED.
[2016-08-23 07:42] VITALS: BP 102/51
--- NOTE | 2016-08-23 10:25 | CP SOUTH PROGRESS NOTE PSYCH ---
Psych (Inpt) Progress Note Progress Note Include the following elements, when applicable: Involvement in the active treatment of the patient with behavioral observations of the patient and the patient's response to the treatment. Review of the ongoing treatment process in the context of the treatment plan. Indication of how multi-disciplinary staff members are carrying out the treatment plan. Plans for future interventions and recommendations for revision of the treatment plan. Liaison with other physicians/providers. Progress Note: I discussed this patient's progress to date, current mental status, treatment process in the context of the treatment plan, and discharge planning with staff/ team in the daily morning inpatient team meeting. I also met with the patient myself in individual session. Patient reports feeling fine good. She reported feeling motivated for discharge tomorrow. Vital Signs Date Time Temp Pulse Resp B/P B/P Pulse O2 O2 Flow FiO2 Mean Ox Delivery Rate 08/23 0742 97.7 91 102/51 08/22 2043 98.1 86 107/72 08/22 1522 90 115/72 08/22 1154 94 137/92 Patient is alert, oriented cooperative with the interview calm. Mood described as feeling better affect appropriate. Thought processes organized, she denied any suicidal or homicidal ideation. No delusions. No hallucinations. Insight and judgment improved. A/P Patient is improving. She is motivated for discharge Continue with current medications Current Medications Sig/Yolanda Start time Last Medication Dose Route Stop Time Status Admin Albuterol Sulfate 2 PUF Q4P PRN 08/14 2230 AC INH Budesonide/ 2 PUF BID 08/15 1000 AC 08/22 Formoterol Fumarate INH 0815 Chlorpromazine 25 MG 2200 08/21 2200 AC 08/22 PO 2127 Chlorpromazine 25 MG AT BEDTIME NEED.. 08/21 1700 AC PO Dicyclomine HCl 20 MG 4 TIMES/DAY PRN 08/15 0830 AC 08/19 PO 2028 Ibuprofen 600 MG Q6P PRN 08/15 0830 AC 08/18 PO 1637 Levothyroxine Sodium 0.2 MG DAILY AC 08/15 0700 AC 08/23 PO 0708 Loperamide HCl 2 MG Q6P PRN 08/15 0830 AC PO Metformin HCl 500 MG 0800,1700 08/15 0800 AC 08/23 PO 0744 Ondansetron HCl 4 MG Q8P PRN 08/15 1215 AC 08/19 PO 1903 Quetiapine Fumarate 100 MG 2200 08/21 2200 AC 08/22 PO 2100 Quetiapine Fumarate 25 MG 0800,1400 08/21 0800 AC 08/23 PO 0745 Quetiapine Fumarate 25 MG Q4H PRN 08/20 1615 AC 08/23 PO 0952 Trazodone HCl 50 MG AT BEDTIME NEED.. 08/18 1630 AC 08/22 PO 2127 Continue to provide support and encouragement
[2016-08-23 11:58] VITALS: BP 101/68
--- NOTE | 2016-08-23 12:20 | NUR ---
PT IS SOCIAL AND PRESENT WITHIN THE MILIEU, NO ISSUES OR COMPAINTS REPORTED OR OBSERVED, CALM, COOPERATIVE AND COMPLIANT. DENIED THOUGHTS OF SELF HARM WHEN ASKED, GOAL IN PLANNING MEETING WAS TO ATTEND GROUPS AND TO STAY POSITIVE, REPORTED SLEEPING BETTER LAST NIGHT, MOOD IS STABLE WITH FULL RANGE AFFECT.
[2016-08-23 15:38] VITALS: BP 97/56
[2016-08-23 19:57] VITALS: BP 117/68
--- NOTE | 2016-08-23 20:42 | NUR ---
PT APPEARS WITHDRAWN, CONSTRICTED AND SLIGHTLY FLAT DURING THE AFTERNOON. SHE HAS NOT REPORTED AND NEGATIVE THOUGHTS AND HAS EXPRESSED TO STAFF HER D/C PLANS.
--- NOTE | 2016-08-24 05:01 | NUR ---
SLEPT WELL OVERNIGHT WITH NO COMPLAINTS.
[2016-08-24 07:50] VITALS: BP 106/58
[2016-08-24 12:35] VITALS: BP 120/72
--- NOTE | 2016-08-24 14:22 | NUR ---
PT IS COMPLIANT AND COOPERATIVE. MOOD IS STABLE WITH A EUTHYMIC AND CONSTRICTED AFFECT. PT DENIES SI AT THIS TIME, NO COMPLAINTS OFFERED. PT IS PRESENT IN THE COMMUNITY AND INTERACTING WITH PEERS AND STAFF- PT CAN BE WITHDRAWN AT TIMES. PT IS ATTENDING GROUPS. VITALS ARE STABLE, APPETITE IS GOOD.
--- NOTE | 2016-08-24 15:23 | CP SOUTH PROGRESS NOTE PSYCH ---
Psych (Inpt) Progress Note Progress Note Include the following elements, when applicable: Involvement in the active treatment of the patient with behavioral observations of the patient and the patient's response to the treatment. Review of the ongoing treatment process in the context of the treatment plan. Indication of how multi-disciplinary staff members are carrying out the treatment plan. Plans for future interventions and recommendations for revision of the treatment plan. Liaison with other physicians/providers. Progress Note: PSYCHIATRIST NOTE, 08/24/2016: I discussed this patient's progress to date, current mental status, treatment and discharge planning with staff team today in the daily morning ITTDami and Romelia Lorenzo LCSW, and I also met with her together in individual session. Patient had been tearful/overwhelmed earlier in the day and was still so when meeting with us in the early afternoon. Patient was feeling panicky, like she was ready for discharge, wasn't going to make it, worried, fretful, apprehensive. Nonetheless, sleep has still been adequate with the low dose PRN Thorazine and trazodone but the latter may be contributing to some destabilization of mood. Patient requested to switch from Seroquel which she thinks in too heavy, to Abilify; after further discussion and description of R/B /SE of this medication patient agreed to start a low dose Abilify trial today for mood stability/racing, overwhelming thoughts; she will begin with 2mg PO QID, plus PRN's of the same strength to use day or night. I will discontinue Seroquel but double current dose of Thorazine from 25mg to 50mg HS in effort to replace the positive effect on sleep; I will also taper away low dose trazodone. Patient's plan is still for return to seeing Ms. Quiroga at [facility] and attending their IOP. The following is an exact transcript of the note patient gave me today: "I am very sorry I know I'm leaving today but I don't feel safe to go home I'm feeling not stable. I feel manic a lot thoughts are running in my head I really don't want to go live at my ex's house I love my son but I just can't do it Maybe [a] few more days can help me I don't know what's going to happen I just [am] scared I'm going to use - when I go home. I been crying all day on and off." Patient rejected treatment with Tegretol, [place] or Depakote ER but after discussion agreed to start a trial of low dose Lamictal (25mg HS). 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
--- NOTE | 2016-08-24 15:23 | SOCIAL WORKER PROG NOTE PSYCH ---
Social Work Progress Note Progress Note Discussed Cathy with Dr. Choe to day, planning and progress. Cathy stated she is feeling very depressed, and anxious. She reports having racing negative thoughts, she is tearful as well. She was almost in a panic about going home today. She is worried about what she will do if she leaves today. Dr. Choe and I met with Cathy, to discuss how she is doing. She reports sleep is good, she agrees to some medication changes. She identified her mood is not good, and her thougths are very negative, and she is very depressed. She reported no plan or intent to harm herself or other, no psychosis. She rates her depression 0/10 :10 and anxiety 0/10:10. She feels once her mood is stable she will be ready to stay with her Ltkrek-kd-ciu's house and her 13yo son, as well as his Father ( Cathy's Ex). Plan to inform Care Cathy is not discharging today. Review with P completed.
[2016-08-24 16:09] VITALS: BP 116/60
[2016-08-24 19:42] VITALS: BP 110/66
--- NOTE | 2016-08-25 03:40 | NUR ---
HAD A LITTLE DFA, BUT ONCE SHE FELL ASLEEP SHE SLEPT WELL WITH NO COMPLAINTS.
[2016-08-25 07:36] VITALS: BP 113/70
--- NOTE | 2016-08-25 11:41 | CP SOUTH PROGRESS NOTE PSYCH ---
Psych (Inpt) Progress Note Progress Note Include the following elements, when applicable: Involvement in the active treatment of the patient with behavioral observations of the patient and the patient's response to the treatment. Review of the ongoing treatment process in the context of the treatment plan. Indication of how multi-disciplinary staff members are carrying out the treatment plan. Plans for future interventions and recommendations for revision of the treatment plan. Liaison with other physicians/providers. Progress Note: PSYCHIATRIST NOTE, 08/25/2016: I discussed this patient's slow progress to date, current mental status, treatment and discharge planning with staff team today in the daily morning ITTM and also met with her again myself in individual session. Patient is still shaky and close to tears today but doing slightly better than yesterday and reports that she thinks the regular and PRN doses of Abilify are helping to calm and organize her racing thoughts; I am increasing dose so that by tomorrow evening she will be on 15mg HS of Abilify; at the same time I plan to attempt to taper away the last of the Thorazine and increase the trazodone PRN's for sleep; I hope this plan will work out, as patient has become quite psychologically/ emotionally linked to the Thorazine over time. She denies any restlessness since starting Abilify and has not taken any PRN Inderal. I think patient will be able to discharge by the morning of 08/27/2016 in time to make her scheduled appointment with Megan Quiroga at 1pm that day and intake for [facility] the next day, 11/28/2016 at 9am. Patient is becoming less irritable and dysphoric, mood slowly improving without any current anti-depressant but the trazodone.
--- NOTE | 2016-08-25 11:54 | SOCIAL WORKER PROG NOTE PSYCH ---
Social Work Progress Note Progress Note Pt reports she is fearful to leave hospital because she is afraid she will relapse. Pt states she is concerned about how things at home with her ex will develop. Although she confirms she does want to got here, it has been years since she has had a relationship with him, she states her inlaws are wonderful and she feels comfortable with the arrangement. Explored why she isnt looking into rehabs, as I asked her this upon admission she states she would have to think about that. At this time her plan is go to meetings, and IOP at [facility]. Follow up appointments have been made for 08/27/16 1pm with Fanny Ken and 08/28/16 9am IOP intake. at [facility], confirmed this appointments with Bernie Garza
--- NOTE | 2016-08-25 11:55 | NUR ---
PT IS OUT IN COMMUNITY INTERACTING WELL PROTESTANT [facility] STAFF AND PEERS. PT IS ATTENDING ALL GROUPS. PT MOOD IS STABLE WITH A EUTHYMIC AFFECT. PT CAN BE A LITTLE WITHDRAWN AT TIMES. PT DENIES SI THOUGHTS.
[2016-08-25 12:14] VITALS: BP 101/68
[2016-08-25 15:51] VITALS: BP 120/75
--- NOTE | 2016-08-25 18:37 | NUR ---
PT IS CALM, COOPERATIVE WITH STAFF AND PEERS, AND PEERS, AND COMPLIANT WITH UNIT RULES. OFTEN IN MILIEU, PT IS INTERACTING WELL WITH OTHERS. MOOD IS STABLE, AFFECT APPEARS EUTHYMIC TO FULL RANGE, COMMUNICATION IS ORGANIZED AND APPEARS NORMAL IN ALL RESPECTS, AND APPETITE IS NORMAL. PT DENIES SI AT THIS TIME.
[2016-08-25 20:18] VITALS: BP 126/80
[2016-08-26 07:36] VITALS: BP 112/71
--- NOTE | 2016-08-26 09:53 | SOCIAL WORKER PROG NOTE PSYCH ---
Social Work Progress Note Progress Note Met with Cathy this morning, she denied having any SI/HI, no psychosis. she was smiling and excited as she stated she attended the AA meeting on the unit last night, and shared openly. She got a phone number of a woman who was a guest speaker at the AA meeting on evening, and Wednesday evening. Cathy reports she slept good last night, and appetite is good. Follow-up appointments arranged for [facility] - W10 started (SW needs to sign). Cathy stated her Mother will be picking her up tomorrow 08/27 at 10AM, to go to her Cqhzja-lw-gut's house. Cathy has an appointment at [facility] with Megan Dickey APRN on 08/27 at 1pm, then an IOP orientation with José Luis Olson LCSW at [facility] on 08/31 at 9am. Completed [facility] Concurrent online - check web.
--- NOTE | 2016-08-26 11:13 | NUR ---
PT IS COMPLIANT AND COOPEARTIVE WITH UNIT RULES. PT IS OUT IN THE COMMUNITY ITNERACTING WITH STAFF AND PEERS. PT IS ATTENDING GROUPS. PT MOOD IS STABLE WITH A FULL RANGE AFFECT. PT DENIES SI THOUGHTS. PT GOAL THIS MORNING WAS TO FINALIZE DISCHARGE PLANS FOR TOMMORROW
[2016-08-26 12:21] VITALS: BP 122/70
--- NOTE | 2016-08-26 15:08 | CP SOUTH PROGRESS NOTE PSYCH ---
Psych (Inpt) Progress Note Progress Note Include the following elements, when applicable: Involvement in the active treatment of the patient with behavioral observations of the patient and the patient's response to the treatment. Review of the ongoing treatment process in the context of the treatment plan. Indication of how multi-disciplinary staff members are carrying out the treatment plan. Plans for future interventions and recommendations for revision of the treatment plan. Liaison with other physicians/providers. Progress Note: Medication list reviewed. Case and treatment plan discussed in team meeting. Staff reports that the patient has been feeling anxious. She has been looking for p.r.n. medications and to have her scheduled medications early. Reported she was not ready to leave. She reported suicidal ideation. Patient seen at 10:57 AM. States she feels better and cannot wait to leave tomorrow. Affect is calm and euthymic. She would like a prescription for Suboxone but I explained she needs to go to a Suboxone program. States her medications are all good and she is happy with them and cannot wait to go on her way. Thinking is more organized than the last time I rounded on her. Mood is pretty good. Rates sad mood maybe 6/10 and anxiety 10/10. Feels nervous about going home. Denies feeling hopeless, helpless, worthless or guilty. Denies active and passive suicidal ideation. Denies homicidal ideation. Denies auditory and visual hallucinations and paranoid ideation. Oriented 3. Describes sleep, appetite and energy all as "so-so." Patient plans to go to [facility] and to return to her home and her 13-year-old son. IMPRESSION: Slow progress. Continue present treatment plan. Discharge is anticipated for tomorrow.
[2016-08-26 15:52] VITALS: BP 118/71
--- NOTE | 2016-08-26 18:09 | NUR ---
PT IS COMPLIANT AND COOPERATIVE WITH UNIT RULES. PT IS OUT IN THE COMMUNITY WATCHING TV AND INTERACTING WELL WITH STAFF AND PEERS. PT MOOD IS STABLE WTIH A FULL RANGE AFFECT. PT DENIES SI THOUGHTS WHEN ASEKD.
[2016-08-26 19:48] VITALS: BP 125/74
--- NOTE | 2016-08-27 07:24 | NUR ---
PT SLEPT AFTER TRAZADONE 50 PRN. PT SCHEDULED TO DC TODAY.
[2016-08-27 07:36] VITALS: BP 101/63
--- NOTE | 2016-08-27 09:16 | SOCIAL WORKER PROG NOTE PSYCH ---
Social Work Progress Note Progress Note Met with Cathy, she denied SI/HI, no psychosis. Her mood is stable. She is excited to discharge today to where she will be residing with her son and Father -in-law, and her son's Father. Cathy asked this morning for a referral to [facility] - I faxed clinical and informed Cathy to call daily. She needs a PPD , recommended she get one from her PCP. She asked for this last minute ( referral to rehab) day of discharge. She plans to leave around 11am, her Mother will bring her to [facility] Megan Dickey's medication appointment today, 08/27/16 at 1pm. On 08/28/16 at 9am she has an IOP Orientation at [facility]. Cathy stated she plans to meet her AA sponsor, Franny at a 5:30pm meeting nirali. She plans to attend AA regularly and [facility] IOP. No SI/HI, no Psychosis. Gave Cathy a Smoking Cessation referral for Megan Abarca LCSW on 09/02/16 at 4pm.
--- NOTE | 2016-08-27 09:40 | NUR ---
PT IS PRESENT WITHIN THE COMMUNITY AND APPROPRIATE WITH PEERS AND STAFF, NO ISSUES OR COMPLAINTS REPORTED OR OBSERVED. MOOD IS STABLE WITH FULL RANGE AFFECT, CALM, COOPERATIVE AND OVERALL COMPLIANT. WHEN ASKED DIRECTLY DENIES SI/HI/HALLUCINATIONS AND HAS + UNDERSTANDING OF MEDICATION REGIMENT AND VERBALIZES MOTIVATION TOWARDS DISCHARGE PLAN AND SOBRIETY. INFORMATION PACKETS RE: BIPOLAR, SUBSTANCE ABUSE AND SI GIVEN TO PT AND RESOURCE GUIDE WELL. REPORTED OVERALL IMPROVEMENT IN MOOD/SLEEP/MENTAL STATUS/BEHAVIOR/APPETITE, NO QUESTIONS OR CONCERNS.
[2016-08-27] MEDS ORDERED: TRAZODONE HCL50 M1 PO (10:57)
[2016-08-27] MEDS ORDERED: ABILIFY15 M1 PO (10:57)
--- NOTE | 2016-08-27 15:41 | CP SOUTH PROGRESS NOTE PSYCH ---
Psych (Inpt) Progress Note Progress Note Include the following elements, when applicable: Involvement in the active treatment of the patient with behavioral observations of the patient and the patient's response to the treatment. Review of the ongoing treatment process in the context of the treatment plan. Indication of how multi-disciplinary staff members are carrying out the treatment plan. Plans for future interventions and recommendations for revision of the treatment plan. Liaison with other physicians/providers. Progress Note: Case and treatment plan discussed in team meeting. Staff reports that the patient appears stable. Drug dealer is four houses down from her. Patient apparently will lose custody of her son if she uses. Patient has an appointment at [facility] today at 1 PM. Patient seen at 10:44 AM. I asked her to clarify smoking status and she has never been a smoker. Feels a little tired. Asking if she can have Abilify in the morning as well. I suggested we continue it at bedtime as sometimes split dosing is not covered by insurance. Affect is calm and euthymic. Feels pretty well. Reports she is just a little anxious at 7/10. Rates sad mood 0/10. States she is happy to go home. Can't wait to see her son. Would like to go to rehab at [facility] in [place]. Denies feeling hopeless, helpless, worthless or guilty. Denies active and passive suicidal ideation. Denies homicidal ideation. Denies auditory and visual hallucinations and paranoid ideation. Reports sleep is pretty good now. Appetite is lower, and she thinks maybe her stomach has shrunk. Energy is so-so. Tolerating medications well, without complaint. Feels ready and safe for discharge. IMPRESSION: Condition improved. Okay for discharge today to home with follow-up as above.
--- NOTE | 2016-08-27 15:56 | DISCHARGE SUMMARY REPORT-PSYCH ---
Visit Information Visit Dates/Diagnosis' Admission Date: 08/14/16 Discharge Date: 08/27/16 Reason for Admission: Suicidal ideation and depression. Psy Discharge Primary Diag: Bipolar d/o, depressed Psy Discharge Secondary Diag: Opiate use disorder Hypothyroidism Hypertension Diabetes mellitus type II Hospital Course Significant Lab Findings: Lab Albumin 3.6 g/dL 08/18/16 0650 Carbon Dioxide 31 mmol/L H 08/20/16 0640 Chloride 94 mmol/L L 08/20/16 0640 Free T4 0.44 ng/dL L 08/15/16 0603 Free T4 0.84 ng/dL 08/18/16 0650 Free T4 1.30 ng/dL 08/24/16 0902 Glucose 196 mg/dL H 08/18/16 0650 Hemoglobin A1c 8.5 % H 08/15/16 0603 Sodium 134 mmol/L L 08/20/16 0640 TSH 19.100 uIU/mL H 08/15/16 0603 TSH 32.600 uIU/mL H 08/18/16 0650 TSH 0.881 uIU/mL 08/24/16 0902 Thyroxine (T4) 3.6 ug/dL L 08/15/16 0603 Total Protein 6.0 g/dL L 08/18/16 0650 Urine Opiates Screen > 4000.00 NG/ML H 08/14/16 1242 PATIENT: KYRA ARELLANO PRESENT AGE: 31 PATIENT ACCOUNT NO: [id number] : 84 LOCATION: [facility] ORDERING PHYSICIAN: CLEVE WELLER MD SERVICE DATE: 08/19/16- EXAM TYPE: RAD - XRY-FOOT COMPLETE, LEFT EXAMINATION: XR FOOT, LEFT CLINICAL INFORMATION: Status post fall. Pain. Rule out fracture. COMPARISON: None TECHNIQUE: AP, lateral, and oblique views of the left foot. FINDINGS: No acute fracture or dislocation is identified. Bony mineralization is normal. The joint spaces are maintained. The soft tissues are unremarkable. IMPRESSION: No acute osseous traumatic findings. DICTATED BY: DEBRA JEONG MD DATE/TIME DICTATED:08/19/162148 ITEM REPAIR MANAGER:SAÚL DATE/TIME TRANSCRIBED:08/19/162148 EKG 08/20/16 showed sinus rhythm at a rate of 92, probable left atrial abnormality , borderline T abnormalities, anterior leads, faster rate since previous traicing, borderline ECG. QT 368, QTc 456. Course Complications: Patient had a fall while on Thorazine. Per Dr. Weller: Event Note: 31 yo F with h/o DM, HTN, hypothyroidism admitted for SI. Rapid response was called around 9 pm, as patient was found on the floor of the hallway. Patient reported feeling dizzy, reached for the railing and fell. She hit her right side of head to the wall. She did not pass out. She also twisted her left foot in this process. She denies vision changes or headache. Denies chest pain, palpitations, dyspnea. Of note, patient had been increasingly anxious during the evening and required two doses of thorazine (25 mg and 50 mg). Vitals were stable, accuchek 172, neuro exam intact. Orthostats were positive Sitting 134/86 --> 111/83 Standing. She c/o left foot pain, xray was negative. We have placed her on neurochecks Q6. EKG was sinus rhythm. She is probably orthostatic from the thorazine. Will encourage PO fluid intake and consider compression stockings. I have discontinued the HCTZ as her BP has been borderline through her stay in [facility]. Repeating labs in AM. Also, her thyroid functions have been deranged, while on synthroid ? noncompliance. I have asked RN to consult Endocrine in AM. Consultations: Patient was seen for admisison H&P by Dr. Gallegos and for endocrine consult by Dr. Honeycutt. Please refer to their notes for additional information. Allergies: Coded Allergies: NO KNOWN ALLERGIES (09/29/15) Hospital Course/TX Response: The patient was monitored on the unit for safety and mood disorder. Some Suboxone was used for opiate withdrawal and then discontinued. Thorazine was transitioned to Abilify. HCTZ was discontinued after fall. The patient is off of Valium and Cogentin. Thinking has cleared. Mood and affect have improved. SI has remitted. Progress note from date of discharge, 08/27/16: Case and treatment plan discussed in team meeting. Staff reports that the patient appears stable. Drug dealer is four houses down from her. Patient apparently will lose custody of her son if she uses. Patient has an appointment at [facility] today at 1 PM. Patient seen at 10:44 AM. I asked her to clarify smoking status and she has never been a smoker. Feels a little tired. Asking if she can have Abilify in the morning as well. I suggested we continue it at bedtime as sometimes split dosing is not covered by insurance. Affect is calm and euthymic. Feels pretty well. Reports she is just a little anxious at 7/10. Rates sad mood 0/10. States she is happy to go home. Can't wait to see her son. Would like to go to rehab at [facility]. Denies feeling hopeless, helpless, worthless or guilty. Denies active and passive suicidal ideation. Denies homicidal ideation. Denies auditory and visual hallucinations and paranoid ideation. Reports sleep is pretty good now. Appetite is lower, and she thinks maybe her stomach has shrunk. Energy is so-so. Tolerating medications well, without complaint. Feels ready and safe for discharge. IMPRESSION: Condition improved. Okay for discharge today to home with follow-up as above. Discharge HBIPS - Tobacco Use Treatment Offered Post DC Medications Offered: Not Applicable Post DC Tobacco Treatment Plan: Not Applicable - EtOH/Drug Use D/O Treatment Offered Post DC Medications Offered: Med Not Indicated for D/O Post DC EtOH/SubAbuse [place] Plan: Other SubAbuse/Dual Pgm ([facility] IOP) Program Appt Date: 08/28/16 Program Appt Time: 0900 Metabolic Screening - Screen if on a Neuroleptic Medication - Metabolic screening should include: - Blood Pressure, BMI, Glucose or Hgb A1c, & a - Lipid profile from within the past 365 days. Metabolic Screening () Not Applicable, patient not on a neuroleptic. OR () Patient on a neuroleptic(s) . Enter below results for Glucose or Hemoglobin A1C, and lipid panel if obtained during the last 365 days. BMI: 27.200 Blood Pressure: 101/63 Laboratory Results (If applicable): [x] Lab Cholesterol 180 MG/DL 08/15/16 0603 Cholesterol/HDL Ratio 3 % 08/15/16 0603 Glucose 196 mg/dL H 08/18/16 0650 HDL Cholesterol 52 mg/dL 08/15/16 0603 Hemoglobin A1c 8.5 % H 08/15/16 0603 LDL Cholesterol, Calc 108 mg/dL 08/15/16 0603 Triglycerides 104 mg/dL 08/15/16 0603 Discharge Instructions General Discharge Information Discharge Medications: Discharge Medications- (Dose, route, freq, indication): HOME MEDICATION LIST START taking these NEW Home Medications: Trazodone HCl Dose: ORAL, AT BEDTIME as Qty: 14 Called in to (Trazodone HCl) 50 50 Milligram needed for DFA/insomnia Refills: 0 Pharm 1 MG TABLET Last Taken: 08/26/16 Time: 2200 Aripiprazole Dose: ORAL, 2200 for stabilize Qty: 14 Called in to (Abilify) 15 MG 15 Milligram moods/clear thoughts Refills: 0 Pharm 1 TABLET Last Taken: 08/26/16 Time: 2200 CONTINUE taking these Home Medications: Levothyroxine Sodium Dose: ORAL, DAILY for THYROID (Levothyroxine Sodium) 1 Tablet Last Taken: 08/27/16 200 MCG TABLET Time: 0700 Albuterol Sulfate Dose: Inhale through mouth, (Proair Hfa) 8.5 GM 2 Puff as needed for ASTHMA HFA.AER.AD PER PT Metformin HCl (Metformin Dose: ORAL, TWICE DAILY for HCl ER) 500 MG 1 Tablet DIABETES TAB.ER.24H Last Taken: 08/27/16 Time: 0800 Budesonide/Formoterol Dose: Inhale through mouth, Fumarate (Symbicort 160- 2 Puff TWICE DAILY for ASTHMA 4.5 Mcg Inhaler) 10.2 GM PER PT HFA.AER.AD STOP taking these DISCONTINUED Home Medications: Chlorpromazine HCl Dose: ORAL, 4 TIMES A DAY for MENTAL (Chlorpromazine HCl) 25 MG 1 Tablet HEALTH TABLET Reason Stopped: Per Doctor Decision Hydrochlorothiazide Dose: ORAL, DAILY for DIURETIC (Hydrochlorothiazide) 12.5 MG 1 Capsule Reason Stopped: Low Blood CAPSULE Pressure Diazepam (Diazepam) 2 MG Dose: ORAL, TWICE DAILY for ANXIETY TABLET 1 Tablet Reason Stopped: Per Doctor Decision Benztropine Mesylate Dose: ORAL, THREE TIMES DAILY for (Benztropine Mesylate) 1 MG 1 Tablet MENTAL HEALTH TABLET Reason Stopped: Not needed 1: [id number], [id number] [place] [address] Multiple Neuroleptics: ([x]) Not Applicable OR Document below three failed attempts at monotherapy, or a plan to taper to monotherapy, or augmentation of Clozapine. () Patient's Diet: Diabetic, no concentrated sweets. Patient's Activity: No restrictions. DC Disposition: Home with son. Recommendations: 1. Stay away from drugs and alcohol. 2. See Dr. Honeycutt for diabetes care. 3. Please have PCP review EKG (copy of EKG given to patient upon discharge). Referred To: [facility] 08/28/16 at 9 a.m. Megan Winter APRN 08/27/[address] Honeycutt, patient to arrange. Copies To: CABRERA WINTER APRN; JOSEF RAMIREZ,[facility]
== END 2016-08-27 11:46 | DRG 753 ==
LOC: ERH 11:45 → ERHI 17:58 → CP SOUTH 17:58 → ENTRNSPT 18:06 → ENRESERV 18:15 → EDTRNSPT 18:38 → CP SOUTH 19:55 → CMPTRNSPT 08-15 07:02 → CP SOUTH 08-17 09:30
PROVIDERS: Emergency Medicine; Student in an Organized Health Care Education/Training Program; ADMIT Psychiatry & Neurology Psychiatry
DX: F31.9 Bipolar disorder, unspecified (principal); F19.90 Other psychoactive substance use, unspecified, uncomplicated
CPT/HCPCS: 36415; 73630-LT; 80307; 81025; 82436; 93005; 93010; 94799; G0463; G0480; J0401; J3101; J3230; J3490